=== PATIENT | male | born 1930 | race Caucasian/White ===

== ENCOUNTER 2016-05-12 12:51 | Inpatient (IN) | payer OTHER ==
[~2016-05-12] VITALS: Ht 177.8 cm; Wt 71.1 kg
[~2016-05-12 12:51] MED LIST: /WARF25TA PO; ARIC10TA PO; ASPI81TA85 PO; CRES20TA PO; FENO134C PO; FERR325T3 PO; OMEG100011 PO; SYNT25TA PO; TAMS0.4C PO; VITA200015 PO; [UNRECOGNIZED DRUG - OTHER] PO
[2016-05-12 13:20] LABS: ABG BASE EXCESS 0.8 (-2.0-2.0); ABG DEVICE NASAL CANN; ABG HCO3 23.3 MEQ/L (22.0-26.0); ABG PARTIAL PRESSURE O2 80.1 mmHg (75.0-100.0); ABG STANDARD HCO3 25.2 MEQ/L (22.0-26.0); ABG TOTAL CO2 24.2 MEQ/L (23.0-31.0); ABG pH (ARTERIAL) 7.493 UNITS (7.350-7.450)
[2016-05-12] MEDS ORDERED: WARF4TAB51 PO (14:05)
[2016-05-12] MEDS ORDERED: DONETAB6 PO (14:05)
[2016-05-12] MEDS ORDERED: FLOM5CAP PO (14:05)
[2016-05-12] MEDS ORDERED: VITA500055 PO (14:05)
[2016-05-12] MEDS ORDERED: ASPI1TAB PO (14:05)
[2016-05-12] MEDS ORDERED: CRES5TAB PO (14:05)
[2016-05-12] MEDS ORDERED: SYNT50TA PO (14:05)
[2016-05-12] MEDS ORDERED: VITA10002 PO (14:05)
[2016-05-12] MEDS ORDERED: FENO134C PO (14:05)
[2016-05-12] MEDS ORDERED: RISP0.253 PO (14:05)
[2016-05-12 14:19] LABS: INR 2.11
[2016-05-12 14:24] LABS: MEAN CORPUSCULAR HEMOGLOBIN 32.4 pg (27.0-33.0); MEAN CORPUSCULAR HGB CONC 32.1 g/dl (32.0-36.5); MEAN CORPUSCULAR VOLUME 100.8 fl (80.0-96.0); PLATELET COUNT, AUTOMATED 141 k/mm3 (150-450); RED CELL DISTRIBUTION WIDTH 13.9 % (11.5-14.5); WHITE BLOOD COUNT 14.2 K/mm3 (4.0-10.0)
--- NOTE | 2016-05-12 14:29 | REP ---
PORTABLE CHEST X-RAY: Sitting AP view. HISTORY: Altered mental status. COMPARISON: Chest x-ray September 16, 2014. 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 EKG electrodes are seen. There is calcific pleural plaquing bilaterally as before fairly extensively. No new infiltrate is seen. Moderate cardiomegaly unchanged. Prior sternotomy. IMPRESSION: Extensive calcific pleural plaquing bilaterally. Cardiomegaly with pacemaker. No acute infiltrate. Signed by Melvin Waldrop MD 05/12/2016 02:44 P
[2016-05-12 14:38] LABS: ALBUMIN 2.6 GM/DL (3.2-5.2); ALBUMIN/GLOBULIN RATIO 0.55 (1.00-1.93); ALKALINE PHOSPHATASE 112 U/L (45-117); ALT/SGPT 21 U/L (12-78); ANION GAP 8 MEQ/L (8-16); AST/SGOT 38 U/L (15-37); BILIRUBIN,DIRECT 0.5 MG/DL (0.0-0.2); BLOOD UREA NITROGEN 21 MG/DL (7-18); CALCIUM LEVEL 9.1 MG/DL (8.8-10.2); CARBON DIOXIDE LEVEL 29 MEQ/L (21-32); CHLORIDE LEVEL 106 MEQ/L (98-107); GLOMERULAR FILTRATION RATE > 60.0 (>35); GLUCOSE, FASTING 129 MG/DL (83-110); SODIUM LEVEL 143 MEQ/L (136-145); TOTAL PROTEIN 7.3 GM/DL (6.4-8.2)
[2016-05-12 14:45] LABS: BANDS 3 % (< 11); EOSINOPHILS 1 % (0-5)
[2016-05-12 14:59] LABS: CALCIUM OXALATE CRYSTALS SMALL
[2016-05-12] MEDS ORDERED: VANCOMYCIN 750 MG/25 ML VIAL (J3370) As Ordered ONE (16:33)
[2016-05-12] MEDS ORDERED: VANCOMYCIN 1000 MG/20 ML VIAL (J3370) As Ordered ONE (16:33)
[2016-05-12] MEDS ORDERED: ZOSYN 3.375 GM VIAL (J2543) As Ordered ONE (16:33)
[2016-05-12] MEDS ORDERED: ACETAMINOPHEN TAB 650MG DOSE (2X325MG) PO PRN (18:45)
[2016-05-12] MEDS ORDERED: BISACODYL 5 MG TAB PO PRN (18:45)
[2016-05-12] MEDS ORDERED: ONDANSETRON 4MG/2ML VIAL (J2405) IV PRN (18:45)
--- NOTE | 2016-05-12 19:45 | PHACANCOPD ---
PHARMACY VANCOMYCIN DOSING Pt Demographics Demographics Patient Age:86 , Weight: , Gender: male Adjusted Body Weight Date: 05/12/16, Adjusted Body Weight: Kg Events Past 24 Hours Events Past 24 Hours: YES: Elevation in WBC, NO: Change in CrCl, Dialysis, Diuretic Therapy, Fever, Other, Pending Diagnostics, Pending Procedures Vancomycin Vancomycin indication: infected groin ulcer Vancomycin Target Ranges: 15-20 mcg/ml Vancomycin Load Y/N: Yes Load Dose Date Time Vancomycin Load Dose: 1750mg Date: 05/12 Time: ~17:00 in ER Vancomycin Dose Date: 05/12/16. Current Vancomycin Dose: [1g q18h @05] Intermittent Dosing?: No Labs Labs Item Value Date Time White Blood Count 14.2 K/mm3 H 05/12/16 1354 Creatinine 0.80 MG/DL 05/12/16 1354 Micro Microbiology 05/12/16 Blood Culture, Received Pending 05/12/16 Blood Culture, Received Pending 05/12/16 Urine Culture, Received Pending Creatinine Clearance Date:05/12/16. Creatinine Clearance: [~67 ml/min]. Pending Labs Vanco trough scheduled 05/14 @16:00 Assessment and Plan Maintaining Current Dose?: Yes Reason for dose change: No Dose Change Pharmacist Note Pharmacist Note Date: 05/12/16. Pharmacist note: pt is being admitted for an infected groin ulcer, he has been started on Zosyn and Vanco. Pt received a 1750mg Vancomycin load in the ER and I have started him on 1g q18h to be started 12 hours after the loading dose. Pt has normal renal function but reduced clearance due to his age. He has not been on vancomycin at our facility in the past and does not have a hx of MRSA. His past wound (groin) cultures were notable for MSSA (12/2014 ) and E. faecalis (08/1998). I have a trough scheduled before the 4th dose. We will continue to monitor. Jones Quijano Pharm.D. May 12, 2016 19:45
[2016-05-12 20:12] LABS: MAGNESIUM LEVEL 1.8 MG/DL (1.8-2.4)
--- NOTE | 2016-05-12 20:32 | EDDOCDS ---
Nurse's Notes [facility] Name: Jerry Rossi Age: 86 yrs Sex: Male : 1930 Arrival Date: 05/12/2016 Time: 12:51 Bed Admit Hold Private MD: Cory Yousif Diagnosis: Dehydration;Elevated white blood cell count;Altered mental status, unspecified Presentation: 05/12 13:05 Presenting complaint: EMS states: Pt sent by family members due to pt having increased jf3 levels of confusion and decreased levels of consiousness. Family told EMS pt has increased mumbling and "isn't doing well". Adult Sepsis Screening:. Suicide/Homicide risk assessment- the patient denies having any suicidal and/or homicidal ideations and does not present with any other emotional, behavioral or mental health complaints. Status: Patient is not a volunteer services director or dependent. Transition of care: patient was not received from another setting of care. 13:05 Acuity: SAFIA Level 3 jf3 13:05 Method Of Arrival: Ambulance jf3 19:31 Adult Sepsis Screening: The patient does not have new or worsening altered mentation. af2 Patient's respiratory rate is less than 22. Systolic blood pressure is greater than 100. Patient has a qSOFA score of 0- Negative Sepsis Screen. Triage Assessment: 13:15 General: Appears in no apparent distress, Behavior is cooperative. Pain: Denies pain. jf3 The patient is triaged at the bedside. See Assessment in Nurses Notes section of ED record. Neurological: Level of Consciousness is awake, confused, Oriented to person. Respiratory: Airway is patent Respiratory effort is even, unlabored, Respiratory pattern is regular, symmetrical. Historical: - Allergies: no known allergies; - Home Meds: 1. Aricept 10 mg Oral tab 1 tab nightly 2. aspirin 81 mg Oral TbEC 1 tab once daily 3. Coumadin 1 mg oral tab 4. Crestor 5 mg oral tab 5. fenofibrate 134mg oral once daily 6. levothyroxine 50 mcg Oral tab 1 tab once daily 7. vitamin b12 1mg daily 8. tamsulosin 0.4 mg oral cp24 1 cap once daily 9. Vitamin D3 5,000 unit oral tab daily 10. risperidone 0.25 mg oral tab - PMHx: a fib; CAD; caroitd artery stenosis; Gout; hyperlipidemia; hypertrophy prostate with oobstruction; Hypothyroidism; iron deficency anemia; paroxysmal a fib; senile dementia; stage 3 kidney disease; thrombocytopenia; - PSHx: Cystectomy; Heart Surgery; Stents, Coronary; Cataract Surgery; CABG; Pacemaker Insertion; Inguinal hernia repair.; AortoBifem stenting; - Social history: Smoking status: other No barriers to communication noted, The patient speaks fluent Kittitian. - Family history: Not pertinent. - : The pt / caregiver states he / she is on anticoagulants: coumadin. Home medication list is obtained from [employer] import data, a discharge med list. - Exposure Risk Screening:: None identified. Screenin:28 Screening information is obtained from the caregiver. Fall risk: At risk due to jf3 immobility, The following interventions are performed due to a positive Fall Risk Screen: Fall Risk is added to Special Handling on the patient Summary Screen. A Fall Risk Bracelet was applied to the patient. Side Rails are placed in the up position. A Call Chaves is given with instruction to call for help when getting out of bed. Fall Alert bracelet is placed on the patient. Assistance ADL's: Requires assistance with meal preparation, this assistance is provided by family members, bathing, assistance is provided by family members, dressing, assistance is provided by family members, toileting, assistance is provided by family members, ambulation, assistance is provided by family members, housework, assistance is provided by family members, medication administration, assistance is provided by family members. Abuse/DV Screen: The patient / caregiver reports he/she is: not in a situation that causes fear, pain or injury. Nutritional screening: No deficits noted. Advance Directives: There is an active DNR order and the pt has a copy here at this time. home support is inadequate. Assessment: 13:28 Adult Sepsis Screening: Patient has new or worsening altered mentation (1 point). jf3 Patient's respiratory rate is less than 22. Systolic blood pressure is greater than 100. Patient has a qSOFA score of 1- Negative Sepsis Screen. General: Appears in no apparent distress, comfortable, Behavior is cooperative. Pain: Denies pain. Neurological: Level of Consciousness is awake, confused, Oriented to person, place, Speech mumbles. Cardiovascular: Capillary refill < 3 seconds Heart tones S3 present Chest pain is denied. Respiratory: Airway is patent Respiratory effort is even, unlabored, Respiratory pattern is regular, symmetrical, Breath sounds with crackles inspiratory expiratory in left posterior lower lobe and right posterior lower lobe. GI: Abdomen is non- distended Bowel sounds present X 4 quads. Abd is soft and non tender X 4 quads. Derm: Skin is dry. 14:30 General: Appears in no apparent distress, comfortable, Behavior is cooperative. Pain: jf3 Denies pain. Respiratory: Airway is patent Respiratory effort is even, unlabored, Respiratory pattern is regular, symmetrical. 15:30 General: Appears in no apparent distress, comfortable, Behavior is cooperative. jf3 Respiratory: Respiratory effort is even, unlabored, Respiratory pattern is regular, symmetrical. 16:30 General: Appears in no apparent distress, comfortable, Behavior is cooperative. jf3 General: So at bedside. Pain: Denies pain. Respiratory: Respiratory effort is even, unlabored, Respiratory pattern is regular, symmetrical. 17:30 General: Appears in no apparent distress, comfortable, Behavior is cooperative. jf3 General: SO at bedside. IV fluids running. Pain: Denies pain. Respiratory: Respiratory effort is even, unlabored, Respiratory pattern is regular, symmetrical. 17:59 General: Hospitalist in room with pt and SO. QMP states pt will be aspiration jf3 precautions, and to d/c O2 via NC. 18:03 General: Ordered by Dr Lennon to d/c remainder of 500cc NS bolus upon completion of abx's.jf3 18:30 General: Appears in no apparent distress, comfortable, Behavior is cooperative. Pain: jf3 Denies pain. Cardiovascular: Capillary refill < 3 seconds. Respiratory: Airway is patent Respiratory effort is even, unlabored, Respiratory pattern is regular, symmetrical. 18:30 Derm: Skin is normal. jf3 19:30 General: Assumed care of pt at this time, offers no complaints at this time. Advised af2 regarding plan of care and room assignment. Will continue to monitor.. Respiratory: Airway is patent Respiratory effort is even, unlabored. 19:55 General: pt and updated regarding plan of care.. af2 Vital Signs: 13:15 BP 128 / 60; Pulse 69; Resp 20; Temp 99(TE); Pulse Ox 96% on R/A; Weight 77.11 kg (R); jf3 Height 5 ft. 10 in. (177.80 cm) (R); Pain 0/10; 16:37 BP 122 / 58 (auto/); af2 16:39 Pulse 50 MON; Pulse Ox 100% ; af2 16:48 Pulse 68 MON; Pulse Ox 100% ; jf3 16:52 BP 127 / 60 (auto/); jf3 17:07 BP 128 / 69 (auto/); jf3 17:07 Pulse 86 MON; Pulse Ox 100% ; jf3 17:22 BP 136 / 67 (auto/); jf3 17:22 Pulse 68 MON; Pulse Ox 100% ; jf3 17:37 BP 140 / 70 (auto/); jf3 17:37 Pulse 68 MON; Pulse Ox 100% ; jf3 17:52 BP 141 / 67 (auto/); jf3 17:52 Pulse 68 MON; Pulse Ox 100% ; jf3 18:06 Pulse 70 MON; Pulse Ox 99% ; jf3 18:07 BP 146 / 68 (auto/); jf3 18:20 Pulse 68 MON; Pulse Ox 97% ; jf3 18:22 BP 134 / 67 (auto/); jf3 18:33 Pulse 68 MON; Pulse Ox 85% ; jf3 18:37 BP 132 / 71 (auto/); jf3 19:24 BP 158 / 72 (auto/); jf3 19:26 Pulse 68 MON; Pulse Ox 99% ; jf3 19:36 Pulse 68 MON; Pulse Ox 99% ; jf3 19:37 BP 163 / 73 (auto/); jf3 19:49 Pulse 70 MON; Pulse Ox 98% ; jf3 19:50 Pulse 68 MON; Pulse Ox 98% ; jf3 19:50 BP 162 / 73 (auto/); jf3 19:52 BP 154 / 70 (auto/); jf3 19:54 BP 162 / 73 RA; Pulse 73; Resp 18 S; Temp 97.6(TE); Pulse Ox 99% on R/A; af2 13:15 Body Mass Index 24.39 (77.11 kg, 177.80 cm) jf3 Vitals: 13:15 Log In Time N/A - ambulance arrival. jf3 ED Course: 12:52 Patient visited by Yolanda Vital PCA. brie 12:52 Cory Yousif MD is Private Physician. brie 12:52 Ofelia Covarrubias FNP is [facility]. le 12:52 Patient moved to Waiting brie 12:52 Patient moved to 15 brie 12:59 Patient visited by Ofelia Covarrubias FNP. le 12:59 Patient visited by Ofelia Covarrubias FNP. le 13:08 Triage Initiated jf3 13:16 -Arterial Blood Gas Sent. kt1 13:28 The patient / caregiver is instructed regarding the plan of care and ED course. jf3 13:49 Patient visited by Nelly Ren PCA. rs6 13:49 EKG done. (by ED staff). Reviewed by Ofelia SMITH. rs6 13:50 Pt greeted and oriented to ED. Patient advised of names of staff involved in care, rs6 location of call chaves, wait times and NPO status. Accompanied by Significant Other, Patient has correct armband on for positive identification. Placed in gown. Bed in low position. Call light in reach. Side rails up X2. machine edge bander on. Pulse ox on. NIBP on. 13:51 Patient visited by Nelly Ren PCA. rs6 14:00 [facility]LY [facility], [facility] Payment Agreement was scanned into [employer] and attached to record. mm15 14:15 Cardiac Injury Profile Sent. jf3 14:15 Liver Profile Sent. jf3 14:15 MED Profile Sent. jf3 14:15 Thyroid Stimulating Hormone Sent. jf3 14:15 Troponin Sent. jf3 14:40 DIFFERENTIAL NO CHARGE Sent. jf3 14:41 Urinalysis Sent. jf3 14:41 Urine Culture Sent. jf3 14:42 Patient visited by Casimiro Dotson,ELISEO. jf3 14:53 Chest, 1 View Returned. EDMS 16:14 Kami Snyder is Hospitalizing Provider. le 16:52 Patient visited by Casimiro Dotson RN. jf3 17:08 Patient visited by Nelly Ren PCA. rs6 18:04 Patient visited by Casimiro Dotson,ELISEO. jf3 18:57 Leanne Ayala,RN is Primary Nurse. af2 19:03 Patient moved to Admit Hold kpj 19:29 No procedures done that require assistance. af2 19:40 Patient visited by Leanne Ayala,RN. af2 19:55 Patient visited by Casimiro Dotson,ELISEO. jf3 19:56 Inserted other. af2 19:58 Patient visited by Leanne Ayala,RN. af2 Administered Medications: 14:24 Drug: NS 0.9% 500 ml [sodium chloride 0.9 % injection solution] Route: IV; Rate: bolus; jf3 Site: left forearm; 15:25 Follow up: IV Status: Completed infusion; IV Intake: 500ml jf3 16:51 Drug: NS 0.9% 500 ml [sodium chloride 0.9 % injection solution] Route: IV; Rate: bolus; jf3 Site: left forearm; 16:51 Drug: Piperacillin-Tazobactam 3.375 grams [piperacillin-tazobactam 3.375 gram jf3 intravenous solution] Route: IVPB; Infused Over: 30 mins; Site: left forearm; 19:55 Follow up: IV Status: Completed infusion; IV Intake: 50ml jf3 20:24 Not Given (Duplicate Order): vancomycin (loading dose for pt. wt. 70-79kg) 1750 mg IVPB af2 once 20:24 Drug: vancomycin (loading dose for pt. wt. 40-49kg) 1000 mg [vancomycin 1,000 mg af2 intravenous injection] Route: IVPB; Site: left forearm; Point of Care Testing: Blood Glucose: 13:41 Blood Glucose: 136 mg/dL; jf3 Ranges: Intake: 15:25 IV: 500.00ml; Total: 500.00ml. jf3 19:55 IV: 50.00ml; Total: 550.00ml. jf3 RT: 13:16 ABG's drawn from left brachial artery pressure held for 5 minuntes no bleeding noted kt1 pressure bandage applied specimen sent pt. tolerated well. Order Results: Lab Order: CBC with Diff; SPEC'M 05/12/16 13:54 Test: WHITE BLOOD COUNT; Value: 14.2; Range: 4.0-10.0; Abnormal: Above high normal; Units: K/mm3; Status: F Test: RED BLOOD COUNT; Value: 4.18; Range: 4.30-6.10; Abnormal: Below low normal; Units: M/mm3; Status: F Test: HEMOGLOBIN; Value: 13.5; Range: 14.0-18.0; Abnormal: Below low normal; Units: g/dl; Status: F Test: HEMATOCRIT; Value: 42.1; Range: 42.0-52.0; Units: %; Status: F Test: MEAN CORPUSCULAR VOLUME; Value: 100.8; Range: 80.0-96.0; Abnormal: Above high normal; Units: fl; Status: F Test: MEAN CORPUSCULAR HEMOGLOBIN; Value: 32.4; Range: 27.0-33.0; Units: pg; Status: F Test: MEAN CORPUSCULAR HGB CONC; Value: 32.1; Range: 32.0-36.5; Units: g/dl; Status: F Test: RED CELL DISTRIBUTION WIDTH; Value: 13.9; Range: 11.5-14.5; Units: %; Status: F Test: PLATELET COUNT, AUTOMATED; Value: 141; Range: 150-450; Abnormal: Below low normal; Units: k/mm3; Status: F Test: NEUTROPHILS; Value: 86; Range: 35-75; Abnormal: Above high normal; Units: %; Status: F Test: BANDS; Value: 3; Range: < 11; Units: %; Status: F Test: LYMPHOCYTES; Value: 3; Range: 16-52; Abnormal: Below low normal; Units: %; Status: F Test: MONOCYTES; Value: 7; Range: 0-8; Units: %; Status: F Test: EOSINOPHILS; Value: 1; Range: 0-5; Units: %; Status: F Test: MACROCYTOSIS; Value: 1+; Status: F Lab Order: Cardiac Injury Profile; [facility] 05/12/16 13:54 Test: CPK CREATINE PHOSPHOKINASE; Value: 24; Range: 39-308; Abnormal: Below low normal; Units: U/L; Status: F Test: CK-MB VALUE MASS; Value: 1.0; Range: 0.0-3.6; Units: NG/ML; Status: F Test: MB/CK RELATIVE INDEX; Value: 4.16; Range: < OR =4; Abnormal: Above high normal; Status: F Test Note: ; DIAGNOSIS CRITERIA MMB ng/ml Relative Index (RI) NON-AMI < or = 5 N/A STILES ZONE > 5 < or = 4 AMI > 5 > 4 Lab Order: Liver Profile; [facility] 05/12/16 13:54 Test: AST/SGOT; Value: 38; Range: 15-37; Abnormal: Above high normal; Units: U/L; Status: F Test: ALT/SGPT; Value: 21; Range: 12-78; Units: U/L; Status: F Test: ALKALINE PHOSPHATASE; Value: 112; Range: 45-117; Units: U/L; Status: F Test: BILIRUBIN,TOTAL; Value: 1.0; Range: 0.2-1.0; Units: MG/DL; Status: F Test: BILIRUBIN,DIRECT; Value: 0.5; Range: 0.0-0.2; Abnormal: Above high normal; Units: MG/DL; Status: F Test: TOTAL PROTEIN; Value: 7.3; Range: 6.4-8.2; Units: GM/DL; Status: F Test: ALBUMIN; Value: 2.6; Range: 3.2-5.2; Abnormal: Below low normal; Units: GM/DL; Status: F Test: ALBUMIN/GLOBULIN RATIO; Value: 0.55; Range: 1.00-1.93; Abnormal: Below low normal; Status: F Lab Order: [facility] Profile; [facility] 05/12/16 13:54 Test: GLUCOSE, FASTING; Value: 129; Range: 83-110; Abnormal: Above high normal; Units: MG/DL; Status: F Test: BLOOD UREA NITROGEN; Value: 21; Range: 7-18; Abnormal: Above high normal; Units: MG/DL; Status: F Test: CREATININE FOR GFR; Value: 0.80; Range: 0.70-1.30; Units: MG/DL; Status: F Test: GLOMERULAR FILTRATION RATE; Value: > 60.0; Range: >35; Status: F Test: SODIUM LEVEL; Value: 143; Range: 136-145; Units: MEQ/L; Status: F Test: POTASSIUM SERUM; Value: 4.0; Range: 3.5-5.1; Units: MEQ/L; Status: F Test: CHLORIDE LEVEL; Value: 106; Range: 98-107; Units: MEQ/L; Status: F Test: CARBON DIOXIDE LEVEL; Value: 29; Range: 21-32; Units: MEQ/L; Status: F Test: ANION GAP; Value: 8; Range: 8-16; Units: MEQ/L; Status: F Test: CALCIUM LEVEL; Value: 9.1; Range: 8.8-10.2; Units: MG/DL; Status: F Test Note: ; Units are mL/min/1.73 m2 Chronic Kidney Disease Staging per NKF: Stage I & II GFR >=60 Normal to Mildly Decreased Stage III GFR 30-59 Moderately Decreased Stage IV GFR 15-29 Severely Decreased Stage V GFR <15 Very Little GFR Left ESRD GFR <15 on OIL DRILLER Lab Order: Thyroid Stimulating Hormone; [facility] 05/12/16 13:54 Test: THYROID STIMULATING HORMONE; Value: 2.000; Range: 0.358-3.740; Units: uIU/ML; Status: F Lab Order: Troponin; [facility] 05/12/16 13:54 Test: TROPONIN I; Value: 0.04; Range: < 0.10; Units: NG/ML; Status: F Test Note: ; Troponin I Reference Interval for REach LOCI: 99th Percentile= 0.00-0.045 ng/ml Risk Stratification: <= 0.10 ng/ml Decreased Risk for Adverse Clinical Events. 0.10-1.50 ng/ml Increased Risk for Adverse Clinical Events. Evaluation of additional criterion and/or repeat testing in 2-6 hours is suggested to rule out myocardial damage. >= 1.50 ng/ml Indicative of Myocardial Injury. Lab Order: Urinalysis; [facility] 05/12/16 14:39 Test: APPEARANCE, URINE; Value: HAZY; Range: CLEAR; Status: F Test: COLOR, URINE; Value: LEANNE; Range: YELLOW; Status: F Test: PH,URINE; Value: 6.0; Range: 5.0-9.0; Units: UNITS; Status: F Test: SPECIFIC GRAVITY URINE AUTO; Value: 1.021; Range: 1.002-1.035; Status: F Test: PROTEIN, URINE AUTO; Value: NEGATIVE; Range: NEGATIVE; Units: mg/dL; Status: F Test: GLUCOSE, URINE (UA) AUTO; Value: NEGATIVE; Range: NEGATIVE; Units: mg/dL; Status: F Test: KETONE, URINE AUTO; Value: NEGATIVE; Range: NEGATIVE; Units: mg/dL; Status: F Test: UROBILINOGEN, URINE AUTO; Value: 4.0; Range: 0.0-2.0; Abnormal: Above high normal; Units: mg/dL; Status: F Test: BILIRUBIN, URINE AUTO; Value: NEGATIVE; Range: NEGATIVE; Status: F Test: NITRITE, URINE AUTO; Value: NEGATIVE; Range: NEGATIVE; Status: F Test: LEUKOCYTE ESTERASE, URINE AUTO; Value: 1+; Range: NEGATIVE; Abnormal: Above high normal; Status: F Test: BLOOD, URINE BLOOD; Value: 2+; Range: NEGATIVE; Abnormal: Above high normal; Status: F Test: WBC, URINE AUTO; Value: 28; Range: 0-3; Abnormal: Above high normal; Units: /HPF; Status: F Test: RBC, URINE AUTO; Value: 42; Range: 0-3; Abnormal: Above high normal; Units: /HPF; Status: F Test: BACTERIA, URINE AUTO; Value: NEGATIVE; Range: NEGATIVE; Status: F Test: SQUAMOUS EPITHELIAL CELL UR AU; Value: 0; Range: 0-6; Units: /HPF; Status: F Test: MUCUS, URINE; Value: SMALL; Range: NEGATIVE; Status: F Test: HYALINE CAST, URINE AUTO; Value: 0; Range: 0-1; Units: /LPF; Status: F Test: CALCIUM OXALATE CRYSTALS; Value: SMALL; Range: NONE; Status: F Lab Order: -Arterial Blood Gas; SPEC'M 05/12/16 13:01 Test: ABG pH (ARTERIAL); Value: 7.493; Range: 7.350-7.450; Abnormal: Above high normal; Units: UNITS; Status: F Test: ABG PARTIAL PRESSURE CO2; Value: 31.0; Range: 35.0-45.0; Abnormal: Below low normal; Units: mmHg; Status: F Test: ABG PARTIAL PRESSURE O2; Value: 80.1; Range: 75.0-100.0; Units: mmHg; Status: F Test: ABG TOTAL CO2; Value: 24.2; Range: 23.0-31.0; Units: MEQ/L; Status: F Test: ABG HCO3; Value: 23.3; Range: 22.0-26.0; Units: MEQ/L; Status: F Test: ABG BASE EXCESS; Value: 0.8; Range: -2.0-2.0; Status: F Test: ABG STANDARD HCO3; Value: 25.2; Range: 22.0-26.0; Units: MEQ/L; Status: F Test: ABG O2 SATURATION; Value: 96.9; Range: 95.0-99.0; Units: %; Status: F Test: ABG DEVICE; Value: NASAL YENY; Status: F Lab Order: Ammonia ([place] Tube on Ice, Not [place]); [facility] 05/12/16 13:54 Test: AMMONIA; Value: < 25; Range: <32; Units: uMOL/L; Status: F Lab Order: INR; 05/12/16 13:54 Test: PROTHROMBIN TIME; Value: 23.7; Range: 12.3-14.5; Abnormal: Above high normal; Units: SECONDS; Status: F Test: INR; Value: 2.11; Status: F Test Note: ; THERAPUTIC HUMAN INR VALUES INDICATIONS NORMAL RANGES PROPHYLAXIS/TREATMENT OF: VENOUS THROMBOSIS 2.0-3.0 PULMONARY EMBOLISM 2.0-3.0 PREVENTION OF SYSTEMIC EMBOLISM FROM: TISSUE HEART VALVES 2.0-3.0 ACUTE MYOCARDIAL INFARCTION 2.0-3.0 VALVULAR HEART DISEASE 2.0-3.0 ATRIAL FIBRILLATION 2.0-3.0 MECHANICAL VALVES(HIGH RISK) 2.5-3.5 RECURRENT MYOCARDIAL INFARCTION 2.5-3.5 Lab Order: Lactic Acid ([place] tube on ice); 05/12/16 13:54 Test: LACTIC ACID LEVEL, LACTATE; Value: 2.4; Range: 0.4-2.0; Abnormal: Above upper panic limits; Units: MMOL/L; Status: F Lab Order: Fingerstick Blood Sugar; 05/12/16 13:39 Test: BEDSIDE GLUCOSE; Value: 136; Range: 83-110; Abnormal: Above high normal; Units: MG/DL; Status: F Lab Order: PLATELET ESTIMATE; 05/12/16 13:54 Test: PLATELET ESTIMATE; Value: DECREASED; Range: NORMAL; Status: F Lab Order: MAGNESIUM LEVEL; [facility] 05/12/16 19:26 Test: MAGNESIUM LEVEL; Value: 1.8; Range: 1.8-2.4; Units: MG/DL; Status: F Lab Order: THYROID STIMULATING HORMONE; [facility]05/12/16 19:26 Test: THYROID STIMULATING HORMONE; Value: 1.220; Range: 0.358-3.740; Units: uIU/ML; Status: F Lab Order: LACTIC ACID LEVEL, LACTATE; SPEC'M 05/12/16 19:26 Test: LACTIC ACID LEVEL, LACTATE; Value: 1.9; Range: 0.4-2.0; Units: MMOL/L; Status: F Radiology Order: Chest, 1 View Test: Chest, 1 View REASON FOR EXAMINATION: altered mental status; PORTABLE CHEST X-RAY:; ; Sitting AP view.; ; HISTORY: Altered mental status.; ; COMPARISON: Chest x-ray September 16, 2014.; ; FINDINGS: A bipolar pacemaker is seen in the right heart via the left side. EKG; electrodes are seen. There is calcific pleural plaquing bilaterally as before; fairly extensively. No new infiltrate is seen. Moderate cardiomegaly unchanged.; Prior sternotomy.; ; IMPRESSION: Extensive calcific pleural plaquing bilaterally. Cardiomegaly with; pacemaker. No acute infiltrate.; ; ; Signed by; Melvin Waldrop MD 05/12/2016 02:44 P; Outcome: 16:14 Decision to Hospitalize by Provider. le 19:55 Discharge Assessment: Patient awake, alert and oriented x 3. No cognitive and/or af2 functional deficits noted. Patient verbalized understanding of disposition instructions. patient administered narcotics - no. The following High Risk Discharge criteria are identified: None. Admitted to Med/Surg accompanied by tech, via stretcher, with chart. Condition: stable. No special radiology studies were completed. Property :Personal belongings accompany Pt. 20:31 Patient left the ED. af2 Signatures: [facility] Kayla Garduno RN RN kpj [place], Kristin kt1 Ofelia Covarrubias, LUIS HAND CROWN POUNCER Yolanda Schneider, ASSOCIATE PROFESSOR OF PATHOLOGY ASSOCIATE PROFESSOR OF PATHOLOGY brie Matheus Montelongo mm15 Nelly Ren, ASSOCIATE PROFESSOR OF PATHOLOGY ASSOCIATE PROFESSOR OF PATHOLOGY rs6 Leanne Ayala RN RN af2 Casimiro Dotson RN RN jf3 MTDD
--- NOTE | 2016-05-12 20:32 | EDDOCDS ---
Physician Documentation [facility] Name: Jerry Rossi Age: 86 yrs Sex: Male : 1930 Arrival Date: 05/12/2016 Time: 12:51 Bed Admit Hold Private MD: Cory Yousif Disposition: 05/12/16 16:14 Hospitalization ordered by Kami Snyder for Observation. Preliminary diagnosis are Dehydration, Elevated white blood cell count, Altered mental status, unspecified. - Bed requested for 4 [place]. - Status is Observation. af2 - Condition is Stable. - Problem is new. - Symptoms are unchanged. Historical: - Allergies: no known allergies; - Home Meds: 1. Aricept 10 mg Oral tab 1 tab nightly 2. aspirin 81 mg Oral TbEC 1 tab once daily 3. Coumadin 1 mg oral tab 4. Crestor 5 mg oral tab 5. fenofibrate 134mg oral once daily 6. levothyroxine 50 mcg Oral tab 1 tab once daily 7. vitamin b12 1mg daily 8. tamsulosin 0.4 mg oral cp24 1 cap once daily 9. Vitamin D3 5,000 unit oral tab daily 10. risperidone 0.25 mg oral tab - PMHx: a fib; CAD; caroitd artery stenosis; Gout; hyperlipidemia; hypertrophy prostate with oobstruction; Hypothyroidism; iron deficency anemia; paroxysmal a fib; senile dementia; stage 3 kidney disease; thrombocytopenia; - PSHx: Cystectomy; Heart Surgery; Stents, Coronary; Cataract Surgery; CABG; Pacemaker Insertion; Inguinal hernia repair.; AortoBifem stenting; - Social history: Smoking status: other No barriers to communication noted, The patient speaks fluent Sudanese. - Family history: Not pertinent. - : The pt / caregiver states he / she is on anticoagulants: coumadin. Home medication list is obtained from [employer] import data, a discharge med list. - Exposure Risk Screening:: None identified. Vital Signs: 05/12 13:15 BP 128 / 60; Pulse 69; Resp 20; Temp 99(TE); Pulse Ox 96% on R/A; Weight 77.11 kg / 170 jf3 lbs (R); Height 5 ft. 10 in. (177.80 cm) (R); Pain 0/10; 16:37 BP 122 / 58 (auto/); af2 16:39 Pulse 50 MON; Pulse Ox 100% ; af2 16:48 Pulse 68 MON; Pulse Ox 100% ; jf3 16:52 BP 127 / 60 (auto/); jf3 17:07 BP 128 / 69 (auto/); jf3 17:07 Pulse 86 MON; Pulse Ox 100% ; jf3 17:22 BP 136 / 67 (auto/); jf3 17:22 Pulse 68 MON; Pulse Ox 100% ; jf3 17:37 BP 140 / 70 (auto/); jf3 17:37 Pulse 68 MON; Pulse Ox 100% ; jf3 17:52 BP 141 / 67 (auto/); jf3 17:52 Pulse 68 MON; Pulse Ox 100% ; jf3 18:06 Pulse 70 MON; Pulse Ox 99% ; jf3 18:07 BP 146 / 68 (auto/); jf3 18:20 Pulse 68 MON; Pulse Ox 97% ; jf3 18:22 BP 134 / 67 (auto/); jf3 18:33 Pulse 68 MON; Pulse Ox 85% ; jf3 18:37 BP 132 / 71 (auto/); jf3 19:24 BP 158 / 72 (auto/); jf3 19:26 Pulse 68 MON; Pulse Ox 99% ; jf3 19:36 Pulse 68 MON; Pulse Ox 99% ; jf3 19:37 BP 163 / 73 (auto/); jf3 19:49 Pulse 70 MON; Pulse Ox 98% ; jf3 19:50 Pulse 68 MON; Pulse Ox 98% ; jf3 19:50 BP 162 / 73 (auto/); jf3 19:52 BP 154 / 70 (auto/); jf3 19:54 BP 162 / 73 RA; Pulse 73; Resp 18 S; Temp 97.6(TE); Pulse Ox 99% on R/A; af2 13:15 Body Mass Index 24.39 (77.11 kg, 177.80 cm) jf3 MDM: 12:54 Insurance Claims Adjuster/Pulse Ox/q 15 min VS ordered. le 12:54 Accucheck ordered. le 12:54 IV Saline Lock ordered. le 12:54 Oxygen at 4L/Min NC or Home dosage ordered. le 12:54 Rhythm Strip to chart ordered. le 12:54 Call Respiratory ordered. le 12:54 CBC with Diff Ordered. EDMS 12:54 Cardiac Injury Profile Ordered. EDMS 12:54 Liver Profile Ordered. EDMS 12:54 MED Profile Ordered. EDMS 12:54 Thyroid Stimulating Hormone Ordered. EDMS 12:54 Troponin Ordered. EDMS 12:54 Urinalysis Ordered. EDMS 12:54 Urine Culture Ordered. EDMS 12:55 Call Respiratory complete. brie 12:55 -Arterial Blood Gas Ordered. EDMS 12:55 Ammonia ([place] Tube on Ice, Not [place]a Green) Ordered. EDMS 12:56 Chest, 1 View Ordered. EDMS 12:56 ECG WITH READING ER PHYS+CARDIAG ordered. EDMS 12:56 INR Ordered. EDMS 13:17 Lactic Acid (Stiles tube on ice) Ordered. EDMS 13:35 -Arterial Blood Gas Reviewed. le 13:43 BED REQUEST+ADM ordered. EDMS 13:47 Financial registration complete. mm15 13:53 NS 0.9% 500 ml IV at bolus once ordered. le 14:00 [facility] Payment Agreement was scanned into [employer] and attached to record. mm15 14:25 DIFFERENTIAL NO CHARGE Ordered. EDMS 14:37 CBC with Diff Reviewed. le 14:37 INR Reviewed. le 14:37 Fingerstick Blood Sugar Reviewed. le 14:37 Ammonia ([place] Tube on Ice, Not Pea Green) Reviewed. le 15:58 CBC with Diff Reviewed. le 15:58 Cardiac Injury Profile Reviewed. le 15:58 Liver Profile Reviewed. le 15:58 MED Profile Reviewed. le 15:58 Urinalysis Reviewed. le 15:58 Lactic Acid (Stiles tube on ice) Reviewed. le 15:58 Thyroid Stimulating Hormone Reviewed. le 15:58 Troponin Reviewed. le 15:58 PLATELET ESTIMATE Reviewed. le 15:58 Chest, 1 View Reviewed. le 16:01 NS 0.9% 500 ml IV at bolus once ordered. le 16:01 vancomycin (loading dose for pt. wt. 70-79kg) 1750 mg IVPB once ordered. le 16:01 Piperacillin-Tazobactam 3.375 grams IVPB once over 30 mins; dilute in 50mL of NS or D5W le ordered. 16:03 -Blood Culture (Adults Only), peripheral from different site, or from device/port/PICC le etc. if present ordered. 16:03 -Blood Culture Ordered. EDMS 16:06 BLOOD CULTURES Ordered. EDMS 16:07 -Blood Culture (Adults Only), peripheral from different site, or from device/port/PICC mt4 etc. if present complete. 18:35 PUREED DIET ordered. EDMS 18:[address] AND GRAM [address] Ordered. EDMS 18:38 Admission / Observation Status ordered. EDMS 18:41 MAGNESIUM LEVEL Ordered. EDMS 18:41 THYROID STIMULATING HORMONE Ordered. EDMS 18:41 LACTIC ACID LEVEL, LACTATE Ordered. EDMS 18:41 PHYSICAL THERAPY EVAL & TREAT ordered. EDMS 19:32 CBC WITH DIFFERENTIAL Ordered. EDMS 19:32 BASIC METABOLIC PROFILE Ordered. EDMS 20:24 vancomycin (loading dose for pt. wt. 40-49kg) 1000 mg IVPB once ordered. af2 Point of Care Testing: Blood Glucose: 13:41 Blood Glucose: 136 mg/dL; jf3 Ranges: Administered Medications: 14:24 Drug: NS 0.9% 500 ml [sodium chloride 0.9 % injection solution] Route: IV; Rate: bolus; jf3 Site: left forearm; 15:25 Follow up: IV Status: Completed infusion; IV Intake: 500ml jf3 16:51 Drug: NS 0.9% 500 ml [sodium chloride 0.9 % injection solution] Route: IV; Rate: bolus; jf3 Site: left forearm; 16:51 Drug: Piperacillin-Tazobactam 3.375 grams [piperacillin-tazobactam 3.375 gram jf3 intravenous solution] Route: IVPB; Infused Over: 30 mins; Site: left forearm; 19:55 Follow up: IV Status: Completed infusion; IV Intake: 50ml jf3 20:24 Not Given (Duplicate Order): vancomycin (loading dose for pt. wt. 70-79kg) 1750 mg IVPB af2 once 20:24 Drug: vancomycin (loading dose for pt. wt. 40-49kg) 1000 mg [vancomycin 1,000 mg af2 intravenous injection] Route: IVPB; Site: left forearm; Signatures: Dispatcher [employer] EDKayla Birch RN RN Ofelia Shay, CATCH BASIN CLEANER CATCH BASIN CLEANER Julia Freeman mt4 Yolanda Vital, HEAD TRACK COACH HEAD TRACK COACH Matheus Silva mm15 Leanne AyalaRN RN af2 Casimiro Dotson,RN RN jf3 The chart was reviewed and I authenticate all verbal orders and agree with the evaluation and treatment provided.Attachments: 14:00 [facility] Payment Agreement mm15 MTDD
[2016-05-12 20:36] VITALS: BP 122/70
[2016-05-12] MEDS: WARFARIN SOD 2 MG TAB PO SCH (21:45)
[2016-05-12] MEDS: risperiDONE 0.25 MG TAB PO SCH (21:45)
[2016-05-12] MEDS: DOCUSATE SODIUM 100 MG CAP PO SCH (21:45)
[2016-05-12] MEDS: TAMSULOSIN 0.4 MG CAP PO SCH (21:45)
[2016-05-12] MEDS: PIPERACILLIN/TAZOBACTAM SOD 3.375 GM in D5W MINI-BAG PLUS 50 ML IV SCH (22:58)
[2016-05-13] MEDS ORDERED: NYSTATIN 100,000 UNITS/GM TOPICAL PWD 15 GM TOP PRN (03:45)
[2016-05-13] MEDS: PIPERACILLIN/TAZOBACTAM SOD 3.375 GM in D5W MINI-BAG PLUS 50 ML IV SCH ×4 (04:35→23:10)
[2016-05-13] MEDS: VANCOMYCIN HCL 1,000 MG, VIAL MATE ADAPTER 1 EACH in D5W 250 ML IV SCH ×2 (04:35→23:09)
[2016-05-13] MEDS: LEVOTHYROXINE 0.05 MG TAB (50 MCG) PO SCH (05:31)
[2016-05-13 06:00] VITALS: BP 127/60
[2016-05-13 06:24] LABS: BASO % 0.4 % (0.0-1.0); EOS # 0.1 K/mm3 (0.0-0.50); EOS % 1.3 % (0.0-3.0); LARGE UNSTAINED CELL # 0.1 K/mm3 (0.0-0.4); LYMPH # 0.5 K/mm3 (1.5-4.5); LYMPH % 4.7 % (24.0-44.0); MEAN CORPUSCULAR HEMOGLOBIN 32.1 pg (27.0-33.0); MEAN CORPUSCULAR HGB CONC 31.7 g/dl (32.0-36.5); MEAN CORPUSCULAR VOLUME 101.3 fl (80.0-96.0); MONO # 0.6 K/mm3 (0.0-0.8); MONO % 5.7 % (0.0-5.0); NEUTROPHILS % 86.9 % (36.0-66.0); PLATELET COUNT, AUTOMATED 118 k/mm3 (150-450); RED CELL DISTRIBUTION WIDTH 13.1 % (11.5-14.5); WHITE BLOOD COUNT 10.3 K/mm3 (4.0-10.0)
[2016-05-13 06:39] LABS: ANION GAP 9 MEQ/L (8-16); BLOOD UREA NITROGEN 19 MG/DL (7-18); CARBON DIOXIDE LEVEL 27 MEQ/L (21-32); CHLORIDE LEVEL 109 MEQ/L (98-107); GLOMERULAR FILTRATION RATE > 60.0 (>35); GLUCOSE, FASTING 95 MG/DL (83-110); POTASSIUM SERUM 3.6 MEQ/L (3.5-5.1); SODIUM LEVEL 145 MEQ/L (136-145)
--- NOTE | 2016-05-13 06:52 | HPE ---
DATE OF ADMISSION: 05/12/2016 Time patient seen was yesterday afternoon on 05/12/2016 at around 1700 hours. Patient's primary care provider is Dr. Yousif. CHIEF COMPLAINT: Appears to be weaker than usual. HISTORY OF PRESENT ILLNESS (HPI): 86-year-old male with a past medical history of chronic colonized left inguinal hernia wound after surgery, cardiomyopathy with moderate mitral regurgitation and also mild aortic regurgitation, coronary artery disease, complete heart block, dual chamber pacemaker, atrial fibrillation, on warfarin, diastolic congestive heart failure (CHF) and hypertensive heart disease, peripheral artery disease, stage III chronic kidney disease, carotid artery disease, osteoarthritis, hyperlipidemia, BPH, cataracts, history of abdominal aortic aneurysm status post repair, moderate to severe dementia, gout, obesity and hypothyroidism, vitamin D deficiency, presented with worsening mental status. Patient was sent to emergency room due to home healthcare recommendation. According to patient's , who was in the room during interview, patient has been having dementia and has been having confusion for quite some time. Per patient's , who was also emotional and tearful during the interview, she stated that the patient has been demented for at least 10 years, however has been worsening over the past 2-3 weeks. For the past 2-3 weeks, the patient only wakes up about 1 hour per day and does not really make any meaningful conversation with her. She also stated that he has been also bed bound for many years. Patient had an inguinal repair roughly 10 years ago. However, the mesh at the left side inguinal hernia got infected in the incisions that opened several years ago and this started to produce purulent drainage. It was evaluated by patient's surgeon. However, it was felt that it was too late to remove the mesh due to infection. He was seen at wound care in [place], and also with Dr. Cage in [place]. However, patient's believed that the wound care was not doing anything for the patient. Therefore, he stopped going there at least for 1 year. Patient's was tearful and does not go into details, and also stated that they would not want any surgical procedure done due to likely no one was going to patch it due it has been worked up before and she has given up hope for any type of procedure on him. He was also labeled nonoperative per the previous surgeon, who evaluated him. Otherwise, patient himself was alert, awake, oriented to himself only. However, he does know that he is in a hospital and does make minimal meaningful conversation. Patient's stated that "she had enough and she will need some sort of help now." Per patient's , they are working to get patient placed in custodial, possibly [facility], and she is undergoing paperwork with [facility]. Otherwise, the denies patient has any fever or any discomfort anywhere. Patient himself denies any chest pain, trouble breathing, any abdominal pains, or any fever or chills. ALLERGIES: None. HOME MEDICATIONS: - aspirin 81 mg one tablet by mouth daily - vitamin D3 5000 units one tablet by mouth daily - vitamin B12 1000 mcg one tablet by mouth daily - donepezil 10 mg one tablet by mouth nightly - fenofibrate 134 mg one tablet by mouth daily - Synthroid 50 mcg one tablet by mouth daily - risperidone 0.25 mg one tablet by mouth nightly - Crestor 5 mg one tablet by mouth daily - Flomax 0.4 mg one tablet by mouth nightly - warfarin 2 mg one tablet by mouth nightly PAST MEDICAL HISTORY: Includin. Cardiomyopathy, also complete heart block, dual chamber pacemaker. Followed up with Dr. Ceballos in the past. 2. Coronary artery disease status post CABG. 3. Atrial fibrillation, on warfarin. 4. Severe peripheral artery disease, had multiple aortic stents. 5. Hyperlipidemia. 6. Osteoarthritis. 7. Diastolic heart failure. 8. Chronic kidney disease, stage III. 9. Carotid artery disease. 10. BPH. 11. History of abdominal aortic aneurysm, status post repair. 12. Cataracts. 13. Moderate to severe dementia. 14. Gout. 15. Hypothyroidism. 16. Vitamin D deficiency. PAST SURGICAL HISTORY: Includin. CABG times four. 2. Aortoiliac stent and also aortobifemoral stent. 3. Cataract surgery bilaterally. 4. Left inguinal hernia repair. 5. Pacemaker placement. 6. Right carotid endarterectomy. 7. Cecilia fundoplication in 2006. 8. Circumcision as an adult. 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 Denies any smoking, drinking or recreational drug use. FAMILY HISTORY: Patient's father and brother from heart disease. REVIEW OF SYSTEM: Full review of systems could not be obtained due to patient does not respond to questions due to dementia. However, stated that he lost about 30 pounds over the past 6 months. Otherwise, patient does not have any fever recently. Patient was confused at baseline and however, it has worsened compared to baseline for at least 2-3 weeks. Patient has been bed bound for many years. 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 According to , the color of the drainage has not really changed and the amount of drainage has not changed either. PHYSICAL EXAMINATION: VITAL SIGNS: Blood pressure 128/60, pulse 69, respirations 20, temperature 99, oxygen was saturating at 96% on room air. Weight was 77 kg. Height was 177 cm GENERAL: Patient is a frail-looking demented, bed bound, elderly male who was alert, awake, oriented to himself only, does not appear to be in distress, laying comfortably in bed with head elevated at 20 degrees. HEENT: Normocephalic, atraumatic. Extraocular motor intact. Mucous moist. NECK: Supple. No neck lymphadenopathy. CARDIOVASCULAR: Irregularly irregular. S1, S2. 2/6 systolic heart murmur. LUNGS: Bilateral rales. ABDOMEN: Positive bowel sounds. Soft, nontender, nondistended. No peritoneal signs. No ecchymosis. Large midline incisional scar. Patient also has two draining ulcers at the left inguinal site produces purulent drainage. It is more grayish in color. However, it was only mildly tender to palpation. EXTREMITIES: No edema, clubbing or cyanosis. SKIN: Warm and dry. NEUROLOGIC: Cranial nerves II-XII intact. Patient could not participate further neurological testing due to dementia. LABORATORY DATA: WBC 14.2, hemoglobin 13.5, hematocrit 42.1, with MCV of 100.8 and platelet count of 141. Sodium 142, potassium 4, chloride 106, bicarbonate 29, BUN 21, creatinine 0.8, GFR greater than 60, fasting glucose 129, lactic acid 2.4 with first lactic acid 1.9, calcium 9.1, magnesium 1.8, total bilirubin 1, direct bilirubin 2.5, AST 38, ALT 21, alkaline phosphatase 112, ammonia level less than 25, total CK 24, CK-MB 1, troponin 0.04, total protein 7.3, albumin was low 2.6, TSH was 2. Patient's PT was 23.7, INR 2.11. Urinalysis shows 2+ blood, 4 urobilinogen, 1+ leukocyte esterase, 28 WBC, 42, RBC. Wound gram-stain and culture are pending. Blood culture times two are pending. Urine culture are pending. Patient had a portable chest x-ray in the emergency room. It shows extensive calcified pleural plaque bilaterally, cardiomegaly with pacemaker. No acute infiltrates. ASSESSMENT AND PLAN: 86-year-old male with past medical history of significant dementia, at least moderate to severe, who has been chronically bed bound for many years with significant cardiomyopathy and had a complete heart block, dual chamber pacemaker, atrial fibrillation, on warfarin, coronary artery disease status post CABG, also severe peripheral artery disease, had multiple aortic stents, also has a nonhealing colonized left inguinal hernia incisional wound for many years, and also diastolic heart failure and hypertensive heart disease, chronic kidney disease, stage III, carotid artery stenosis status post repair, BPH, abdominal aortic aneurysm status post stent, cataract surgery, gout, hypothyroidism, and vitamin D deficiency presented with: 1. Possible septic encephalopathy on chronic dementia. Patient does have leukocytosis WBC 14 and does have an elevated lactic acid of 2.4. Patient did receive 1 liters of normal saline bolus in the emergency room and was started on vancomycin, Zosyn. Will continue patient on vancomycin, Zosyn and obtain wound culture. At this point, patient's does not want any surgical evaluation due to she stated that no one was going to do anything with the wound due to patient was found to be a nonoperative candidate and he has been going to wound care for years and still has the chronic wound of left groin. At this point, we will followup with the cultures and will not give further IV hydration due to he does now have bilateral rales in the lung. Will continue to monitor patient. 2. Lactic acidosis 2.4, resolved. Repeat lactic acid was 1.9. 3. Malnutrition with hypoalbuminemia of 2.6. Will start patient on Ensure supplement. He was already on Ensure at home, will continue. 4. Some dysphagia per patient's . Will start patient on pureed diet for now, and will have a dietary consult to evaluate patient swallow and proper nutrition. 5. Possible urinary tract infection (UTI) with microhematuria on the urinalysis. Urine culture has been ordered. Will follow. Will continue broad-spectrum antibiotics with vancomycin and Zosyn. 6. Possible sepsis. Patient does have a reduced mentation and does have lactic acidosis. Will continue vancomycin and Zosyn, which was started in the emergency room, and continue to monitor patient. 7. Thrombocytopenia with platelet of 141. Will continue to trend. 8. Macrocytic anemia with hemoglobin of 13.5 and mean corpuscular volume (MCV) of 100.8. Will order B12, folate. 9. Chronic wound of left inguinal area secondary to colonized mesh with chronic draining for many years. Patient was seen at wound care in the past. However, patient stopped going to due to does not believe they are doing anything for him. At this point, patient's refused surgical evaluation due to she does not believe they will do anything with him because he had worked up in the past and was found to be a nonoperative candidate. 10. Cardiomyopathy with moderate mitral regurgitation and mild aortic regurgitation. Also, coronary artery disease status post CABG, and also complete heart block status post dual chamber pacemaker. Will continue to monitor. 11. Atrial fibrillation, on Warfarin. International normalized ratio (INR) is 2.1. Continue warfarin. 12. Hyperlipidemia, stable. 13. Osteoarthritis, stable. 14. Chronically bed bound. However, on physical examination, patient does have some muscle strength. Patient's would like physical therapy (PT) and occupational therapy (OT) to work on patient. 15. Diastolic heart failure with ejection fraction of 50-60% with echo in 2010. Patient also has hypertensive heart disease. 16. Severe peripheral artery disease status post multiple stents, including aortoiliac stents and also aortobifemoral stent. Continue to monitor. 17. Chronic kidney disease, stage III. Appears to be at baseline. Will monitor. 18. Carotid stenosis, status post endarterectomy in 2003, stable. Continue to monitor. 19. BPH. Continue to monitor. Patient is incontinent. At this point, will not place Powers. Patient has chronic Powers before admission. 20. Cataracts, stable. 21. History of abdominal aortic aneurysm, status post stents. 22. Moderate to severe dementia. On home medication. 23. Gout. Continue to monitor. No complaints. 24. Hypothyroidism. Continue Synthroid. 25. Vitamin D deficiency. Continue to monitor. 26. Deep venous thrombosis (DVT) prophylaxis. On warfarin. DISPOSITION: Will continue patient on broad-spectrum antibiotic, vancomycin and Zosyn. Will followup with the cultures. Patient does have lactic acidosis and reduced mentation. Patient's also would like placement for patient. Also, we have consulted PT wound care to help with dressing management to the left inguinal wound. Patient has been discussed with attending doctor, Dr. Snyder. My preceptor for this patient encounter was Kami Snyder DO. The preceptor was physically present in the building during the encounter and was fully available. As needed, all aspects of the patient interview, examination, medical decision making process, and medical care plan development were reviewed and approved by the preceptor. The preceptor is aware and concurs with the plan as stated in the body of this note and will attest to such by his/her co-signature. ANIKA
[2016-05-13 08:29] LABS: FOLATE 7.9 NG/ML (>5.4)
--- NOTE | 2016-05-13 09:27 | IPNPDOC ---
Assessment/Plan Date Seen The patient was seen on 05/13/16. Problems Problems: (1) Sepsis Status: Acute Problem Text: favor acute toxic metabolic encephalopathy on chronic moderate dementia source-chronic non-healing L inguinal wound c hernia repair mesh +/- UTI (05/12 UA 1+ LE) previous outpatient f/u c Dr. Cage-phone recommendations instituted-foam dressing D2 Zosyn and Vancomycin. 05/12/16 Wound, urine and blood cultures pending. (2) Altered mental status Status: Acute Problem Text: ? metabolic encephalopathy in presence of wound, leukocytosis and abnormal urine. (3) Dementia Status: Chronic Response to Treatment: Progressing Problem Text: Progressive. memantine held on admission. (4) Sacral decubitus ulcer, stage IV Status: Chronic Response to Treatment: Worse Problem Specific Plan: Monitor Clinically Problem Text: as per sepsis (5) BPH (benign prostatic hyperplasia) Status: Chronic Response to Treatment: Stable Problem Specific Plan: Monitor Clinically Problem Text: On home tamsulosin dosing 05/13 PVR 130 cc (6) Hypothyroid Status: Chronic Response to Treatment: Stable Problem Specific Plan: Monitor Clinically Problem Text: stable TSH of 2. Continue current thyroid supplement. (7) Atrial fibrillation Status: Chronic Response to Treatment: Stable Problem Specific Plan: Monitor Clinically Problem Text: On chronic Warfarin. Monitor INR daily. (8) Hyperlipidemia Status: Chronic Problem Text: on HD rosuva 5 /fenofibrate 145 at home. Plan / VTE VTE Prophylaxis Ordered?: Yes (Warfarin) Plan Diet: Supplement Advance Directives: DNR, Other Advance Directive (MOLST in chart: DNR/DNI) Subjective Review of Systems CC/HPI persistent global decreased LOC Events since last encounter Altered mental status in presence of progressive dementia. + sacral decub, stage 4. Afebrile. General: Reports: ROS Unobtainable Psych: Reports: Memory Issues Objective Physical Examination General Exam: Positive: Alert (to self only), No Acute Distress Eye Exam: Positive: PERRLA ENT Exam: Positive: Atraumatic Neck Exam: Positive: Supple, Negative: JVD Chest Exam: Positive: Clear to auscultation, Normal air movement Heart Exam: Positive: Normal S1, Normal S2, Rate Normal Abdomen Exam: Positive: Normal bowel sounds, Soft, Negative: Tenderness Extremity Exam: Negative: Clubbing, Cyanosis Skin Exam: Positive: Breakdown (stage 4 sacral decubitus ulcer. Sacral erythema and breakdown surrounding decubitus) Vital Signs/I&O Vital Signs Date Time Temp Pulse Resp B/P Pulse Ox O2 Delivery O2 Flow Rate FiO2 05/13/16 06:00 96.5 69 19 127/60 93 Room Air I&O- Last 24 Hours up to 6 AM 05/13/16 05:59 Intake Total 50 ml Output Total 125 ml Balance -75 ml Laboratory Data Labs 24H Laboratory Tests 2 05/12/16 13:01: Arterial Blood pH 7.493H, Arterial Blood Partial Pressure CO2 31.0L, Arterial Blood Partial Pressure O2 80.1, Arterial Blood Total CO2 24.2, Arterial Blood HCO3 23.3, Arterial Blood Base Excess 0.8, Arterial Blood Oxygen Saturation 96.9 , Blood Gas Bicarbonate Standard 25.2, Oxygen Delivery Device NASAL YENY 05/12/16 13:39: Bedside Glucose (Misc Panel) 136H 05/12/16 13:54: Aspartate Amino Transf (AST/SGOT) 38H, Alanine Aminotransferase (ALT/SGPT) 21, Alkaline Phosphatase 112, Total Bilirubin 1.0, Direct Bilirubin 0.5H, Albumin 2.6L, Albumin/Globulin Ratio 0.55L, Ammonia < 25, Anion Gap 8, Band Neutrophils 3, White Blood Count 14.2H, Red Blood Count 4.18L, Hemoglobin 13.5L, Hematocrit 42.1, Mean Corpuscular Volume 100.8H, Mean Corpuscular Hemoglobin 32.4, Mean Corpuscular Hemoglobin Concent 32.1, Red Cell Distribution Width 13.9, Platelet Count 141L, Neutrophils (%) (Auto) , Lymphocytes (%) (Auto) , Monocytes (%) ( Auto) , Eosinophils (%) (Auto) , Basophils (%) (Auto) , Neutrophils # (Auto) , Lymphocytes # (Auto) , Monocytes # (Auto) , Eosinophils # (Auto) , Basophils # ( Auto) , Calcium Level 9.1, Creatine Kinase MB 1.0, Creatine Kinase MB Relative Index 4.16H, Eosinophils (Manual) 1, Glomerular Filtration Rate > 60.0, Lactic Acid Level 2.4*H, Large Unclassified Cells # , Large Unclassified Cells % , Lymphocytes (Manual) 3L, Macrocytosis 1+, Monocytes (Manual) 7, Neutrophils 86H , Platelet Estimate DECREASED, Prothromb Time International Ratio 2.11, Prothrombin Time 23.7H, Thyroid Stimulating Hormone (TSH) 2.000, Total Creatine Kinase 24L, Total Protein 7.3, Troponin I 0.04 05/12/16 14:39: Urine Amorphous Sediment , Urine Appearance HAZY, Urine Color ELO, Urine pH 6.0, Urine Specific [place] 1.021, Urine Protein NEGATIVE, Urine Glucose (UA) NEGATIVE, Urine Ketones NEGATIVE, Urine Urobilinogen 4.0H, Urine Bilirubin NEGATIVE, Urine Leukocyte Esterase 1+H, Urine Bacteria (Auto) NEGATIVE, Urine Blood 2+H, Urine Calcium Carbonate Cryst(Auto) , Urine Calcium Oxalate Cryst ( Auto) SMALL, Urine Calcium Phosphate [place] (Auto) , Urine Cellular Casts , Urine Cystine Crystals , Urine Granular Casts (Auto) , Urine Hyaline Casts (Auto) 0, Urine Leucine Crystals , Urine Mucus (Auto) SMALL, Urine Nitrite NEGATIVE, Urine Oval Fat Bodies (Auto) , Urine RBC (Auto) 42H, Urine Renal Epithelial Cells , Urine Sperm (Auto) , Urine Squamous Epithelial Cells 0, Urine Transitional Epithelial Cells , Urine Trichomonas (Auto) , Urine Triple Phosphate Cryst (Auto) , Urine Tyrosine Crystals , Urine Uric Acid Crystals ( Auto) , Urine WBC (Auto) 28H, Urine Waxy Casts (Auto) , Urine Yeast-Like Cells ( Auto) 05/12/16 19:26: Lactic Acid Level 1.9, Magnesium Level 1.8, Thyroid Stimulating Hormone (TSH) 1.220 05/13/16 06:11: Anion Gap 9, White Blood Count 10.3H, Red Blood Count 3.87L, Hemoglobin 12.5L, Hematocrit 39.3L, Mean Corpuscular Volume 101.3H, Mean Corpuscular Hemoglobin 32.1, Mean Corpuscular Hemoglobin Concent 31.7L, Red Cell Distribution Width 13.1, Platelet Count 118L, Neutrophils (%) (Auto) 86.9H, Lymphocytes (%) (Auto) 4.7L, Monocytes (%) (Auto) 5.7H, Eosinophils (%) (Auto) 1.3, Basophils (%) (Auto ) 0.4, Neutrophils # (Auto) 9.0H, Lymphocytes # (Auto) 0.5L, Monocytes # (Auto) 0.6, Eosinophils # (Auto) 0.1, Basophils # (Auto) 0.0, Blood Urea Nitrogen 19H, Creatinine 0.70, Sodium Level 145, Potassium Level 3.6, Chloride Level 109H, Carbon Dioxide Level 27, Calcium Level 9.0, Folate 7.9, Glomerular Filtration Rate > 60.0, Large Unclassified Cells # 0.1, Large Unclassified Cells % 1.0, Vitamin B12 Level 1999H CBC/BMP Laboratory Tests 05/12/16 13:54 Red Blood Count 4.18 L, Mean Corpuscular Volume 100.8 H, Mean Corpuscular Hemoglobin 32.4, Mean Corpuscular Hemoglobin Concent 32.1, Red Cell Distribution Width 13.9, Neutrophils (%) (Auto) , Lymphocytes (%) (Auto) , Monocytes (%) (Auto) , Eosinophils (%) (Auto) , Basophils (%) (Auto) , Neutrophils # (Auto) , Lymphocytes # (Auto) , Monocytes # (Auto) , Eosinophils # (Auto) , Basophils # (Auto) 05/13/16 06:11 Red Blood Count 3.87 L, Mean Corpuscular Volume 101.3 H, Mean Corpuscular Hemoglobin 32.1, Mean Corpuscular Hemoglobin Concent 31.7 L, Red Cell Distribution Width 13.1, Neutrophils (%) (Auto) 86.9 H, Lymphocytes (%) (Auto) 4.7 L, Monocytes (%) (Auto) 5.7 H, Eosinophils (%) (Auto) 1.3, Basophils (%) ( Auto) 0.4, Neutrophils # (Auto) 9.0 H, Lymphocytes # (Auto) 0.5 L, Monocytes # ( Auto) 0.6, Eosinophils # (Auto) 0.1, Basophils # (Auto) 0.0, Calcium Level 9.0 FSBS Laboratory Tests Test 05/12/16 13:39 Range/Units Bedside Glucose (Misc Panel) 136 83-110 MG/DL Microbiology Microbiology 05/12/16 Blood Culture, Received Pending 05/12/16 Blood Culture, Received Pending 05/12/16 Urine Culture, Received Pending 05/12/16 Gram Stain, Received Pending 05/12/16 Wound Culture, Received Pending Ayah Ingram May 13, 2016 09:27 Cory Yousif M.D. May 13, 2016 13:54
[2016-05-13] MEDS: CYANOCOBALAMIN 500 MCG TAB PO SCH (09:33)
[2016-05-13] MEDS: DOCUSATE SODIUM 100 MG CAP PO SCH ×2 (09:33→20:12)
[2016-05-13] MEDS: ASPIRIN 81 MG ENTERIC TAB PO SCH (09:33)
[2016-05-13] MEDS: ROSUVASTATIN 10 MG TAB (CRESTOR) PO SCH (09:33)
[2016-05-13 14:00] VITALS: BP 119/67
[2016-05-13] MEDS: WARFARIN SOD 2 MG TAB PO SCH (17:14)
--- NOTE | 2016-05-13 18:42 | ECGEPIP ---
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
[2016-05-13] MEDS: TAMSULOSIN 0.4 MG CAP PO SCH (20:12)
[2016-05-13] MEDS: risperiDONE 0.25 MG TAB PO SCH (20:12)
[2016-05-13 22:00] VITALS: BP 101/51
[2016-05-14] MEDS: PIPERACILLIN/TAZOBACTAM SOD 3.375 GM in D5W MINI-BAG PLUS 50 ML IV SCH ×2 (05:43→12:46)
[2016-05-14] MEDS: LEVOTHYROXINE 0.05 MG TAB (50 MCG) PO SCH (05:43)
[2016-05-14 06:00] VITALS: BP 147/84
[2016-05-14 06:01] LABS: BASO % 0.3 % (0.0-1.0); EOS # 0.2 K/mm3 (0.0-0.50); EOS % 2.1 % (0.0-3.0); LARGE UNSTAINED CELL # 0.1 K/mm3 (0.0-0.4); LARGE UNSTAINED CELL % 1.5 % (0.0-4.0); LYMPH # 0.6 K/mm3 (1.5-4.5); LYMPH % 6.7 % (24.0-44.0); MEAN CORPUSCULAR HEMOGLOBIN 32.8 pg (27.0-33.0); MEAN CORPUSCULAR HGB CONC 32.9 g/dl (32.0-36.5); MEAN CORPUSCULAR VOLUME 99.8 fl (80.0-96.0); MONO # 0.5 K/mm3 (0.0-0.8); MONO % 5.4 % (0.0-5.0); NEUTROPHILS # 7.4 K/mm3 (1.8-7.7); PLATELET COUNT, AUTOMATED 104 k/mm3 (150-450); RED CELL DISTRIBUTION WIDTH 13.1 % (11.5-14.5); WHITE BLOOD COUNT 8.8 K/mm3 (4.0-10.0)
[2016-05-14 06:02] LABS: INR 3.04
[2016-05-14 06:11] LABS: ANION GAP 7 MEQ/L (8-16); BLOOD UREA NITROGEN 22 MG/DL (7-18); CALCIUM LEVEL 8.5 MG/DL (8.8-10.2); CARBON DIOXIDE LEVEL 28 MEQ/L (21-32); CHLORIDE LEVEL 108 MEQ/L (98-107); CREATININE FOR GFR 0.76 MG/DL (0.70-1.30); GLOMERULAR FILTRATION RATE > 60.0 (>35); GLUCOSE, FASTING 86 MG/DL (83-110); POTASSIUM SERUM 3.7 MEQ/L (3.5-5.1); SODIUM LEVEL 143 MEQ/L (136-145)
[2016-05-14] MEDS: ROSUVASTATIN 10 MG TAB (CRESTOR) PO SCH (09:53)
[2016-05-14] MEDS: ASPIRIN 81 MG ENTERIC TAB PO SCH (09:53)
[2016-05-14] MEDS: CYANOCOBALAMIN 500 MCG TAB PO SCH (09:53)
[2016-05-14] MEDS: DOCUSATE SODIUM 100 MG CAP PO SCH ×2 (09:53→20:14)
--- NOTE | 2016-05-14 12:25 | IPNPDOC ---
Assessment/Plan Date Seen The patient was seen on 05/14/16. Problems Problems: (1) Sepsis Status: Acute Problem Text: Patient is on day 3 of Zosyn and vancomycin. The wound grew out MSSA, so patient was switched to nafcillin. Patient has been seen previously in 2011 for the same, chronic, nonhealing inguinal wound. He had a history of mesh repair at this site. There is purulent drainage coming from the wound today. Patient also has positive UA. Previous outpatient f/u with Dr. Cage recommended foam dressing, however it appears that the areas developed an abscess. -Consult surgery for possible I&D versus need to remove any previous mesh material -Ultrasound for drainable collection -Changed to nafcillin for MSSA coverage; not meeting sepsis criteria today; if he worsens on monotherapy, we will broaden spectrum for bacteria not seen on culture -Blood cultures pending, no growth to date -Urine culture showed no growth, final (2) Altered mental status Status: Acute Problem Text: Likely metabolic encephalopathy secondary to sepsis and left inguinal abscess. Improved mentation today. -Continue antibiotics (3) Dementia Status: Chronic Response to Treatment: Progressing Problem Text: Progressive. memantine held on admission. (4) Sacral decubitus ulcer, stage IV Status: Chronic Response to Treatment: Worse Problem Specific Plan: Monitor Clinically Problem Text: as per sepsis (5) BPH (benign prostatic hyperplasia) Status: Chronic Response to Treatment: Stable Problem Specific Plan: Monitor Clinically Problem Text: On home tamsulosin dosing 05/13 PVR 130 cc (6) Hypothyroid Status: Chronic Response to Treatment: Stable Problem Specific Plan: Monitor Clinically Problem Text: stable TSH of 2. Continue current thyroid supplement. (7) Atrial fibrillation Status: Chronic Response to Treatment: Stable Problem Specific Plan: Monitor Clinically Problem Text: On chronic Warfarin. Monitor INR daily. -INR 3.0; hold Coumadin (8) Hyperlipidemia Status: Chronic Problem Text: on HD rosuva 5 /fenofibrate 145 at home. Plan / VTE VTE Prophylaxis Ordered?: Yes (Warfarin) Plan Diet: Supplement Advance Directives: DNR, Other Advance Directive (MOLST in chart: DNR/DNI) Disposition Continued inpatient care required for IV antibiotics, possible surgical incision and drainage of abscess, and further care Subjective Review of Systems CC/HPI The patient is a 86-year-old male admitted with a reason for visit of Alterted Mental Status. Events since last encounter Patient has no complaints today. He denies any pain, despite having an infection in his groin. He denies any fevers, chills, sweats. He has no other complaints. Constitutional: Denies: Chills, Fever, Malaise Skin: Reports: Other (chronic inguinal wound) Pulmonary: Denies: Cough, Dyspnea Cardiovascular: Denies: Chest Pain, Palpitations Gastrointestinal: Denies: Abdominal Pain (denies abdominal pain), Nausea, Vomiting Genitourinary: Denies: Dysuria Other systems 10 point review systems is otherwise negative Objective Physical Examination General Exam: Positive: Alert (to self only), No Acute Distress Eye Exam: Positive: PERRLA ENT Exam: Positive: Atraumatic Neck Exam: Positive: Supple, Negative: JVD Chest Exam: Positive: Clear to auscultation, Normal air movement Heart Exam: Positive: Normal S1, Normal S2, Rate Normal Abdomen Exam: Positive: Normal bowel sounds, Other (slight pressure around the patient's inguinal wounds produces purulent drainage; there is hard induration around the wounds), Soft, Negative: Tenderness Male Exam: Positive: Normal Genital Exam Extremity Exam: Negative: Clubbing, Cyanosis Skin Exam: Positive: Breakdown (stage 4 sacral decubitus ulcer. Sacral erythema and breakdown surrounding decubitus) Vital Signs/I&O Vital Signs Date Time Temp Pulse Resp B/P Pulse Ox O2 Delivery O2 Flow Rate FiO2 05/14/16 09:00 Room Air 05/14/16 06:00 96.5 68 17 147/84 95 I&O- Last 24 Hours up to 6 AM 05/14/16 06:00 Intake Total 1533 ml Output Total 0 ml Balance 1533 ml Laboratory Data Labs 24H Laboratory Tests 2 05/14/16 05:39: Anion Gap 7L, White Blood Count 8.8, Red Blood Count 3.39L, Hemoglobin 11.1L, Hematocrit 33.8L, Mean Corpuscular Volume 99.8H, Mean Corpuscular Hemoglobin 32.8, Mean Corpuscular Hemoglobin Concent 32.9, Red Cell Distribution Width 13.1 , Platelet Count 104L, Neutrophils (%) (Auto) 84.0H, Lymphocytes (%) (Auto) 6.7L , Monocytes (%) (Auto) 5.4H, Eosinophils (%) (Auto) 2.1, Basophils (%) (Auto) 0.3, Neutrophils # (Auto) 7.4, Lymphocytes # (Auto) 0.6L, Monocytes # (Auto) 0.5 , Eosinophils # (Auto) 0.2, Basophils # (Auto) 0.0, Blood Urea Nitrogen 22H, Creatinine 0.76, Sodium Level 143, Potassium Level 3.7, Chloride Level 108H, Carbon Dioxide Level 28, Calcium Level 8.5L, Glomerular Filtration Rate > 60.0, Large Unclassified Cells # 0.1, Large Unclassified Cells % 1.5, Prothromb Time International Ratio 3.04, Prothrombin Time 31.5H CBC/BMP Laboratory Tests 05/14/16 05:39 Calcium Level 8.5 L, Red Blood Count 3.39 L, Mean Corpuscular Volume 99.8 H, Mean Corpuscular Hemoglobin 32.8, Mean Corpuscular Hemoglobin Concent 32.9, Red Cell Distribution Width 13.1, Neutrophils (%) (Auto) 84.0 H, Lymphocytes (%) ( Auto) 6.7 L, Monocytes (%) (Auto) 5.4 H, Eosinophils (%) (Auto) 2.1, Basophils ( %) (Auto) 0.3, Neutrophils # (Auto) 7.4, Lymphocytes # (Auto) 0.6 L, Monocytes # (Auto) 0.5, Eosinophils # (Auto) 0.2, Basophils # (Auto) 0.0 Microbiology Microbiology 05/12/16 Blood Culture - Preliminary, Resulted No growth after 24 hours . All specim... 05/12/16 Blood Culture - Preliminary, Resulted No growth after 24 hours . All specim... 05/12/16 Urine Culture - Final, Complete 05/12/16 Gram Stain - Final, Complete 05/12/16 Wound Culture - Final, Complete Staphylococcus Aureus BRIGIDO POON MD May 14, 2016 12:25
[2016-05-14 13:11] VITALS: BP 185/85
[2016-05-14 14:00] VITALS: BP 105/58
[2016-05-14] MEDS: NAFCILLIN SOD 2 GM in D5W MINI-BAG PLUS 100 ML IV SCH ×2 (16:43→20:00)
--- NOTE | 2016-05-14 17:17 | REP ---
ULTRASOUND LEFT GROIN: Ultrasound left groin is performed to evaluate for underlying fluid collection. There is reportedly a wound in the left inguinal region which is draining. No drainable fluid is seen at the site of the left inguinal wound. An open tract is seen containing fluid as well echogenic area measuring about 6 mm in diameter. This could represent a foreign body or some packing material. Signed by Damián Stiles MD 05/18/2016 03:27 P
[2016-05-14] MEDS: risperiDONE 0.25 MG TAB PO SCH (20:14)
[2016-05-14] MEDS: TAMSULOSIN 0.4 MG CAP PO SCH (20:14)
--- NOTE | 2016-05-14 21:32 | EDDOCDS ---
Physician Documentation [facility] Name: Jerry Rossi Age: 86 yrs Sex: Male : 1930 Arrival Date: 05/12/2016 Time: 12:51 Bed Admit Hold Private MD: Cory Yousif Disposition: 05/12/16 16:14 Hospitalization ordered by Kami Snyder for Observation. Preliminary diagnosis are Dehydration, Elevated white blood cell count, Altered mental status, unspecified. - Bed requested for 4 [place]. - Status is Observation. af2 - Condition is Stable. - Problem is new. - Symptoms are unchanged. Historical: - Allergies: no known allergies; - Home Meds: 1. Aricept 10 mg Oral tab 1 tab nightly 2. aspirin 81 mg Oral TbEC 1 tab once daily 3. Coumadin 1 mg oral tab 4. Crestor 5 mg oral tab 5. fenofibrate 134mg oral once daily 6. levothyroxine 50 mcg Oral tab 1 tab once daily 7. vitamin b12 1mg daily 8. tamsulosin 0.4 mg oral cp24 1 cap once daily 9. Vitamin D3 5,000 unit oral tab daily 10. risperidone 0.25 mg oral tab - PMHx: a fib; CAD; caroitd artery stenosis; Gout; hyperlipidemia; hypertrophy prostate with oobstruction; Hypothyroidism; iron deficency anemia; paroxysmal a fib; senile dementia; stage 3 kidney disease; thrombocytopenia; - PSHx: Cystectomy; Heart Surgery; Stents, Coronary; Cataract Surgery; CABG; Pacemaker Insertion; Inguinal hernia repair.; AortoBifem stenting; - Social history: Smoking status: other No barriers to communication noted, The patient speaks fluent Kosovan. - Family history: Not pertinent. - : The pt / caregiver states he / she is on anticoagulants: coumadin. Home medication list is obtained from [employer] import data, a discharge med list. - Exposure Risk Screening:: None identified. Vital Signs: 05/12 13:15 BP 128 / 60; Pulse 69; Resp 20; Temp 99(TE); Pulse Ox 96% on R/A; Weight 77.11 kg / 170 jf3 lbs (R); Height 5 ft. 10 in. (177.80 cm) (R); Pain 0/10; 16:37 BP 122 / 58 (auto/); af2 16:39 Pulse 50 MON; Pulse Ox 100% ; af2 16:48 Pulse 68 MON; Pulse Ox 100% ; jf3 16:52 BP 127 / 60 (auto/); jf3 17:07 BP 128 / 69 (auto/); jf3 17:07 Pulse 86 MON; Pulse Ox 100% ; jf3 17:22 BP 136 / 67 (auto/); jf3 17:22 Pulse 68 MON; Pulse Ox 100% ; jf3 17:37 BP 140 / 70 (auto/); jf3 17:37 Pulse 68 MON; Pulse Ox 100% ; jf3 17:52 BP 141 / 67 (auto/); jf3 17:52 Pulse 68 MON; Pulse Ox 100% ; jf3 18:06 Pulse 70 MON; Pulse Ox 99% ; jf3 18:07 BP 146 / 68 (auto/); jf3 18:20 Pulse 68 MON; Pulse Ox 97% ; jf3 18:22 BP 134 / 67 (auto/); jf3 18:33 Pulse 68 MON; Pulse Ox 85% ; jf3 18:37 BP 132 / 71 (auto/); jf3 19:24 BP 158 / 72 (auto/); jf3 19:26 Pulse 68 MON; Pulse Ox 99% ; jf3 19:36 Pulse 68 MON; Pulse Ox 99% ; jf3 19:37 BP 163 / 73 (auto/); jf3 19:49 Pulse 70 MON; Pulse Ox 98% ; jf3 19:50 Pulse 68 MON; Pulse Ox 98% ; jf3 19:50 BP 162 / 73 (auto/); jf3 19:52 BP 154 / 70 (auto/); jf3 19:54 BP 162 / 73 RA; Pulse 73; Resp 18 S; Temp 97.6(TE); Pulse Ox 99% on R/A; af2 13:15 Body Mass Index 24.39 (77.11 kg, 177.80 cm) jf3 MDM: 12:54 Metal Burnisher/Pulse Ox/q 15 min VS ordered. le 12:54 Accucheck ordered. le 12:54 IV Saline Lock ordered. le 12:54 Oxygen at 4L/Min NC or Home dosage ordered. le 12:54 Rhythm Strip to chart ordered. le 12:54 Call Respiratory ordered. le 12:54 CBC with Diff Ordered. EDMS 12:54 Cardiac Injury Profile Ordered. EDMS 12:54 Liver Profile Ordered. EDMS 12:54 MED Profile Ordered. EDMS 12:54 Thyroid Stimulating Hormone Ordered. EDMS 12:54 Troponin Ordered. EDMS 12:54 Urinalysis Ordered. EDMS 12:54 Urine Culture Ordered. EDMS 12:55 Call Respiratory complete. brie 12:55 -Arterial Blood Gas Ordered. EDMS 12:55 Ammonia ([place] Tube on Ice, Not [place]) Ordered. EDMS 12:56 Chest, 1 View Ordered. EDMS 12:56 ECG WITH READING ER PHYS+CARDIAG ordered. EDMS 12:56 INR Ordered. EDMS 13:17 Lactic Acid ([place] tube on ice) Ordered. EDMS 13:35 -Arterial Blood Gas Reviewed. le 13:43 BED REQUEST+ADM ordered. EDMS 13:47 Financial registration complete. mm15 13:53 NS 0.9% 500 ml IV at bolus once ordered. le 14:00 [facility] Payment Agreement was scanned into [employer] and attached to record. mm15 14:25 DIFFERENTIAL NO CHARGE Ordered. EDMS 14:37 CBC with Diff Reviewed. le 14:37 INR Reviewed. le 14:37 Fingerstick Blood Sugar Reviewed. le 14:37 Ammonia ([place] Tube on Ice, Not [place]) Reviewed. le 15:58 CBC with Diff Reviewed. le 15:58 Cardiac Injury Profile Reviewed. le 15:58 Liver Profile Reviewed. le 15:58 MED Profile Reviewed. le 15:58 Urinalysis Reviewed. le 15:58 Lactic Acid ([place] tube on ice) Reviewed. le 15:58 Thyroid Stimulating Hormone Reviewed. le 15:58 Troponin Reviewed. le 15:58 PLATELET ESTIMATE Reviewed. le 15:58 Chest, 1 View Reviewed. le 16:01 NS 0.9% 500 ml IV at bolus once ordered. le 16:01 vancomycin (loading dose for pt. wt. 70-79kg) 1750 mg IVPB once ordered. le 16:01 Piperacillin-Tazobactam 3.375 grams IVPB once over 30 mins; dilute in 50mL of NS or D5W le ordered. 16:03 -Blood Culture (Adults Only), peripheral from different site, or from device/port/PICC le etc. if present ordered. 16:03 -Blood Culture Ordered. EDMS 16:06 BLOOD CULTURES Ordered. EDMS 16:07 -Blood Culture (Adults Only), peripheral from different site, or from device/port/PICC mt4 etc. if present complete. 18:35 PUREED DIET ordered. EDMS 18:[address] AND GRAM [address] Ordered. EDMS 18:38 Admission / Observation Status ordered. EDMS 18:41 MAGNESIUM LEVEL Ordered. EDMS 18:41 THYROID STIMULATING HORMONE Ordered. EDMS 18:41 LACTIC ACID LEVEL, LACTATE Ordered. EDMS 18:41 PHYSICAL THERAPY EVAL & TREAT ordered. EDMS 19:32 CBC WITH DIFFERENTIAL Ordered. EDMS 19:32 BASIC METABOLIC PROFILE Ordered. EDMS 20:24 vancomycin (loading dose for pt. wt. 40-49kg) 1000 mg IVPB once ordered. af2 05/13 03:23 T-Sheet-- Draft Copy was scanned into [employer] and attached to record. hs2 11:33 ECG/EKG was scanned into [employer] and attached to record. gb 11:33 Other: MOLST was scanned into [employer] and attached to record. gb Point of Care Testing: Blood Glucose: 05/12 13:41 Blood Glucose: 136 mg/dL; jf3 Ranges: Administered Medications: 14:24 Drug: NS 0.9% 500 ml [sodium chloride 0.9 % injection solution] Route: IV; Rate: bolus; jf3 Site: left forearm; 15:25 Follow up: IV Status: Completed infusion; IV Intake: 500ml jf3 16:51 Drug: NS 0.9% 500 ml [sodium chloride 0.9 % injection solution] Route: IV; Rate: bolus; jf3 Site: left forearm; 16:51 Drug: Piperacillin-Tazobactam 3.375 grams [piperacillin-tazobactam 3.375 gram jf3 intravenous solution] Route: IVPB; Infused Over: 30 mins; Site: left forearm; 19:55 Follow up: IV Status: Completed infusion; IV Intake: 50ml jf3 20:24 Not Given (Duplicate Order): vancomycin (loading dose for pt. wt. 70-79kg) 1750 mg IVPB af2 once 20:24 Drug: vancomycin (loading dose for pt. wt. 40-49kg) 1000 mg [vancomycin 1,000 mg af2 intravenous injection] Route: IVPB; Site: left forearm; Signatures: Dispatcher [employer] EDMS Kayla Garduno, ELISEO RN Meredith Santacruz, Reg Reg Ofelia Vela, MAGNAFLUX OPERATOR MAGNAFLUX OPERATOR Julia Freeman mt4 Yolanda Vital, PIPE ORGAN MECHANIC APPRENTICE PIPE ORGAN MECHANIC APPRENTICE brie Matheus Montelongo mm15 Leanne Ayala,RN RN af2 Casimiro Dotson,ELISEO RN jf3 Rena Spence, Reg Reg hs2 The chart was reviewed and I authenticate all verbal orders and agree with the evaluation and treatment provided.Attachments: 14:00 [facility] Payment Agreement mm15 05/13 03:23 T-Sheet-- Draft Copy hs2 11:33 ECG/EKG gb Chart Complete MTDD
--- NOTE | 2016-05-14 21:32 | EDDOCDS ---
Physician Documentation [facility] Name: Jerry Rossi Age: 86 yrs Sex: Male : 1930 Arrival Date: 05/12/2016 Time: 12:51 Bed Admit Hold Private MD: Cory Yousif Disposition: 05/12/16 16:14 Hospitalization ordered by Kami Snyder for Observation. Preliminary diagnosis are Dehydration, Elevated white blood cell count, Altered mental status, unspecified. - Bed requested for 4 [place]. - Status is Observation. af2 - Condition is Stable. - Problem is new. - Symptoms are unchanged. Historical: - Allergies: no known allergies; - Home Meds: 1. Aricept 10 mg Oral tab 1 tab nightly 2. aspirin 81 mg Oral TbEC 1 tab once daily 3. Coumadin 1 mg oral tab 4. Crestor 5 mg oral tab 5. fenofibrate 134mg oral once daily 6. levothyroxine 50 mcg Oral tab 1 tab once daily 7. vitamin b12 1mg daily 8. tamsulosin 0.4 mg oral cp24 1 cap once daily 9. Vitamin D3 5,000 unit oral tab daily 10. risperidone 0.25 mg oral tab - PMHx: a fib; CAD; caroitd artery stenosis; Gout; hyperlipidemia; hypertrophy prostate with oobstruction; Hypothyroidism; iron deficency anemia; paroxysmal a fib; senile dementia; stage 3 kidney disease; thrombocytopenia; - PSHx: Cystectomy; Heart Surgery; Stents, Coronary; Cataract Surgery; CABG; Pacemaker Insertion; Inguinal hernia repair.; AortoBifem stenting; - Social history: Smoking status: other No barriers to communication noted, The patient speaks fluent Jordanian. - Family history: Not pertinent. - : The pt / caregiver states he / she is on anticoagulants: coumadin. Home medication list is obtained from [place] import data, a discharge med list. - Exposure Risk Screening:: None identified. Vital Signs: 05/12 13:15 BP 128 / 60; Pulse 69; Resp 20; Temp 99(TE); Pulse Ox 96% on R/A; Weight 77.11 kg / 170 jf3 lbs (R); Height 5 ft. 10 in. (177.80 cm) (R); Pain 0/10; 16:37 BP 122 / 58 (auto/); af2 16:39 Pulse 50 MON; Pulse Ox 100% ; af2 16:48 Pulse 68 MON; Pulse Ox 100% ; jf3 16:52 BP 127 / 60 (auto/); jf3 17:07 BP 128 / 69 (auto/); jf3 17:07 Pulse 86 MON; Pulse Ox 100% ; jf3 17:22 BP 136 / 67 (auto/); jf3 17:22 Pulse 68 MON; Pulse Ox 100% ; jf3 17:37 BP 140 / 70 (auto/); jf3 17:37 Pulse 68 MON; Pulse Ox 100% ; jf3 17:52 BP 141 / 67 (auto/); jf3 17:52 Pulse 68 MON; Pulse Ox 100% ; jf3 18:06 Pulse 70 MON; Pulse Ox 99% ; jf3 18:07 BP 146 / 68 (auto/); jf3 18:20 Pulse 68 MON; Pulse Ox 97% ; jf3 18:22 BP 134 / 67 (auto/); jf3 18:33 Pulse 68 MON; Pulse Ox 85% ; jf3 18:37 BP 132 / 71 (auto/); jf3 19:24 BP 158 / 72 (auto/); jf3 19:26 Pulse 68 MON; Pulse Ox 99% ; jf3 19:36 Pulse 68 MON; Pulse Ox 99% ; jf3 19:37 BP 163 / 73 (auto/); jf3 19:49 Pulse 70 MON; Pulse Ox 98% ; jf3 19:50 Pulse 68 MON; Pulse Ox 98% ; jf3 19:50 BP 162 / 73 (auto/); jf3 19:52 BP 154 / 70 (auto/); jf3 19:54 BP 162 / 73 RA; Pulse 73; Resp 18 S; Temp 97.6(TE); Pulse Ox 99% on R/A; af2 13:15 Body Mass Index 24.39 (77.11 kg, 177.80 cm) jf3 MDM: 12:54 Portfolio Administrator/Pulse Ox/q 15 min VS ordered. le 12:54 Accucheck ordered. le 12:54 IV Saline Lock ordered. le 12:54 Oxygen at 4L/Min NC or Home dosage ordered. le 12:54 Rhythm Strip to chart ordered. le 12:54 Call Respiratory ordered. le 12:54 CBC with Diff Ordered. EDMS 12:54 Cardiac Injury Profile Ordered. EDMS 12:54 Liver Profile Ordered. EDMS 12:54 MED Profile Ordered. EDMS 12:54 Thyroid Stimulating Hormone Ordered. EDMS 12:54 Troponin Ordered. EDMS 12:54 Urinalysis Ordered. EDMS 12:54 Urine Culture Ordered. EDMS 12:55 Call Respiratory complete. brie 12:55 -Arterial Blood Gas Ordered. EDMS 12:55 Ammonia ([place] Tube on Ice, Not [place]) Ordered. EDMS 12:56 Chest, 1 View Ordered. EDMS 12:56 ECG WITH READING ER PHYS+CARDIAG ordered. EDMS 12:56 INR Ordered. EDMS 13:17 Lactic Acid ([place] tube on ice) Ordered. EDMS 13:35 -Arterial Blood Gas Reviewed. le 13:43 BED REQUEST+ADM ordered. EDMS 13:47 Financial registration complete. mm15 13:53 NS 0.9% 500 ml IV at bolus once ordered. le 14:00 [facility] Payment Agreement was scanned into [employer] and attached to record. mm15 14:25 DIFFERENTIAL NO CHARGE Ordered. EDMS 14:37 CBC with Diff Reviewed. le 14:37 INR Reviewed. le 14:37 Fingerstick Blood Sugar Reviewed. le 14:37 Ammonia ([place] Tube on Ice, Not [place]) Reviewed. le 15:58 CBC with Diff Reviewed. le 15:58 Cardiac Injury Profile Reviewed. le 15:58 Liver Profile Reviewed. le 15:58 MED Profile Reviewed. le 15:58 Urinalysis Reviewed. le 15:58 Lactic Acid ([place]iles tube on ice) Reviewed. le 15:58 Thyroid Stimulating Hormone Reviewed. le 15:58 Troponin Reviewed. le 15:58 PLATELET ESTIMATE Reviewed. le 15:58 Chest, 1 View Reviewed. le 16:01 NS 0.9% 500 ml IV at bolus once ordered. le 16:01 vancomycin (loading dose for pt. wt. 70-79kg) 1750 mg IVPB once ordered. le 16:01 Piperacillin-Tazobactam 3.375 grams IVPB once over 30 mins; dilute in 50mL of NS or D5W le ordered. 16:03 -Blood Culture (Adults Only), peripheral from different site, or from device/port/PICC le etc. if present ordered. 16:03 -Blood Culture Ordered. EDMS 16:06 BLOOD CULTURES Ordered. EDMS 16:07 -Blood Culture (Adults Only), peripheral from different site, or from device/port/PICC mt4 etc. if present complete. 18:35 PUREED DIET ordered. EDMS 18:35 W[address] CULTURE AND GRAM ST Ordered. EDMS 18:38 Admission / Observation Status ordered. EDMS 18:41 MAGNESIUM LEVEL Ordered. EDMS 18:41 THYROID STIMULATING HORMONE Ordered. EDMS 18:41 LACTIC ACID LEVEL, LACTATE Ordered. EDMS 18:41 PHYSICAL THERAPY EVAL & TREAT ordered. EDMS 19:32 CBC WITH DIFFERENTIAL Ordered. EDMS 19:32 BASIC METABOLIC PROFILE Ordered. EDMS 20:24 vancomycin (loading dose for pt. wt. 40-49kg) 1000 mg IVPB once ordered. af2 05/13 03:23 T-Sheet-- Draft Copy was scanned into [employer] and attached to record. hs2 11:33 ECG/EKG was scanned into [employer] and attached to record. gb 11:33 Other: MOLST was scanned into [employer] and attached to record. gb Point of Care Testing: Blood Glucose: 05/12 13:41 Blood Glucose: 136 mg/dL; jf3 Ranges: Administered Medications: 14:24 Drug: NS 0.9% 500 ml [sodium chloride 0.9 % injection solution] Route: IV; Rate: bolus; jf3 Site: left forearm; 15:25 Follow up: IV Status: Completed infusion; IV Intake: 500ml jf3 16:51 Drug: NS 0.9% 500 ml [sodium chloride 0.9 % injection solution] Route: IV; Rate: bolus; jf3 Site: left forearm; 16:51 Drug: Piperacillin-Tazobactam 3.375 grams [piperacillin-tazobactam 3.375 gram jf3 intravenous solution] Route: IVPB; Infused Over: 30 mins; Site: left forearm; 19:55 Follow up: IV Status: Completed infusion; IV Intake: 50ml jf3 20:24 Not Given (Duplicate Order): vancomycin (loading dose for pt. wt. 70-79kg) 1750 mg IVPB af2 once 20:24 Drug: vancomycin (loading dose for pt. wt. 40-49kg) 1000 mg [vancomycin 1,000 mg af2 intravenous injection] Route: IVPB; Site: left forearm; Signatures: Dispatcher [employer] EDMS Kayla Garduno, ELISEO RN Meredith Santacruz, Reg Reg Ofelia Vela, TRAVEL RN OR TRAVEL RN OR Julia Freeman mt4 Yolanda Vital, ROD FILLER ROD FILLER brie Matheus Montelongo mm15 Leanne Ayala,RN RN af2 Casimiro Dotson,ELISEO RN jf3 Rena Spence, Reg Reg hs2 The chart was reviewed and I authenticate all verbal orders and agree with the evaluation and treatment provided.Attachments: 14:00 [facility] Payment Agreement mm15 05/13 03:23 T-Sheet-- Draft Copy hs2 11:33 ECG/EKG gb Chart Complete MTDD
--- NOTE | 2016-05-14 21:32 | EDDOCDS ---
Nurse's Notes [facility] Name: Jerry Rossi Age: 86 yrs Sex: Male : 1930 Arrival Date: 05/12/2016 Time: 12:51 Bed Admit Hold Private MD: Cory Yousif Diagnosis: Dehydration;Elevated white blood cell count;Altered mental status, unspecified Presentation: 05/12 13:05 Presenting complaint: EMS states: Pt sent by family members due to pt having increased jf3 levels of confusion and decreased levels of consiousness. Family told EMS pt has increased mumbling and "isn't doing well". Adult Sepsis Screening:. Suicide/Homicide risk assessment- the patient denies having any suicidal and/or homicidal ideations and does not present with any other emotional, behavioral or mental health complaints. Status: Patient is not a office services coordinator or dependent. Transition of care: patient was not received from another setting of care. 13:05 Acuity: SAFIA Level 3 jf3 13:05 Method Of Arrival: Ambulance jf3 19:31 Adult Sepsis Screening: The patient does not have new or worsening altered mentation. af2 Patient's respiratory rate is less than 22. Systolic blood pressure is greater than 100. Patient has a qSOFA score of 0- Negative Sepsis Screen. Triage Assessment: 13:15 General: Appears in no apparent distress, Behavior is cooperative. Pain: Denies pain. jf3 The patient is triaged at the bedside. See Assessment in Nurses Notes section of ED record. Neurological: Level of Consciousness is awake, confused, Oriented to person. Respiratory: Airway is patent Respiratory effort is even, unlabored, Respiratory pattern is regular, symmetrical. Historical: - Allergies: no known allergies; - Home Meds: 1. Aricept 10 mg Oral tab 1 tab nightly 2. aspirin 81 mg Oral TbEC 1 tab once daily 3. Coumadin 1 mg oral tab 4. Crestor 5 mg oral tab 5. fenofibrate 134mg oral once daily 6. levothyroxine 50 mcg Oral tab 1 tab once daily 7. vitamin b12 1mg daily 8. tamsulosin 0.4 mg oral cp24 1 cap once daily 9. Vitamin D3 5,000 unit oral tab daily 10. risperidone 0.25 mg oral tab - PMHx: a fib; CAD; caroitd artery stenosis; Gout; hyperlipidemia; hypertrophy prostate with oobstruction; Hypothyroidism; iron deficency anemia; paroxysmal a fib; senile dementia; stage 3 kidney disease; thrombocytopenia; - PSHx: Cystectomy; Heart Surgery; Stents, Coronary; Cataract Surgery; CABG; Pacemaker Insertion; Inguinal hernia repair.; AortoBifem stenting; - Social history: Smoking status: other No barriers to communication noted, The patient speaks fluent [place]. - Family history: Not pertinent. - : The pt / caregiver states he / she is on anticoagulants: coumadin. Home medication list is obtained from [employer] import data, a discharge med list. - Exposure Risk Screening:: None identified. Screenin:28 Screening information is obtained from the caregiver. Fall risk: At risk due to jf3 immobility, The following interventions are performed due to a positive Fall Risk Screen: Fall Risk is added to Special Handling on the patient Summary Screen. A Fall Risk Bracelet was applied to the patient. Side Rails are placed in the up position. A Call Chaves is given with instruction to call for help when getting out of bed. Fall Alert bracelet is placed on the patient. Assistance ADL's: Requires assistance with meal preparation, this assistance is provided by family members, bathing, assistance is provided by family members, dressing, assistance is provided by family members, toileting, assistance is provided by family members, ambulation, assistance is provided by family members, housework, assistance is provided by family members, medication administration, assistance is provided by family members. Abuse/DV Screen: The patient / caregiver reports he/she is: not in a situation that causes fear, pain or injury. Nutritional screening: No deficits noted. Advance Directives: There is an active DNR order and the pt has a copy here at this time. home support is inadequate. Assessment: 13:28 Adult Sepsis Screening: Patient has new or worsening altered mentation (1 point). jf3 Patient's respiratory rate is less than 22. Systolic blood pressure is greater than 100. Patient has a qSOFA score of 1- Negative Sepsis Screen. General: Appears in no apparent distress, comfortable, Behavior is cooperative. Pain: Denies pain. Neurological: Level of Consciousness is awake, confused, Oriented to person, place, Speech mumbles. Cardiovascular: Capillary refill < 3 seconds Heart tones S3 present Chest pain is denied. Respiratory: Airway is patent Respiratory effort is even, unlabored, Respiratory pattern is regular, symmetrical, Breath sounds with crackles inspiratory expiratory in left posterior lower lobe and right posterior lower lobe. GI: Abdomen is non- distended Bowel sounds present X 4 quads. Abd is soft and non tender X 4 quads. Derm: Skin is dry. 14:30 General: Appears in no apparent distress, comfortable, Behavior is cooperative. Pain: jf3 Denies pain. Respiratory: Airway is patent Respiratory effort is even, unlabored, Respiratory pattern is regular, symmetrical. 15:30 General: Appears in no apparent distress, comfortable, Behavior is cooperative. jf3 Respiratory: Respiratory effort is even, unlabored, Respiratory pattern is regular, symmetrical. 16:30 General: Appears in no apparent distress, comfortable, Behavior is cooperative. jf3 General: So at bedside. Pain: Denies pain. Respiratory: Respiratory effort is even, unlabored, Respiratory pattern is regular, symmetrical. 17:30 General: Appears in no apparent distress, comfortable, Behavior is cooperative. jf3 General: SO at bedside. IV fluids running. Pain: Denies pain. Respiratory: Respiratory effort is even, unlabored, Respiratory pattern is regular, symmetrical. 17:59 General: Hospitalist in room with pt and SO. QMP states pt will be aspiration jf3 precautions, and to d/c O2 via NC. 18:03 General: Ordered by Dr Lennon to d/c remainder of 500cc NS bolus upon completion of abx's.jf3 18:30 General: Appears in no apparent distress, comfortable, Behavior is cooperative. Pain: jf3 Denies pain. Cardiovascular: Capillary refill < 3 seconds. Respiratory: Airway is patent Respiratory effort is even, unlabored, Respiratory pattern is regular, symmetrical. 18:30 Derm: Skin is normal. jf3 19:30 General: Assumed care of pt at this time, offers no complaints at this time. Advised af2 regarding plan of care and room assignment. Will continue to monitor.. Respiratory: Airway is patent Respiratory effort is even, unlabored. 19:55 General: pt and updated regarding plan of care.. af2 Vital Signs: 13:15 BP 128 / 60; Pulse 69; Resp 20; Temp 99(TE); Pulse Ox 96% on R/A; Weight 77.11 kg (R); jf3 Height 5 ft. 10 in. (177.80 cm) (R); Pain 0/10; 16:37 BP 122 / 58 (auto/); af2 16:39 Pulse 50 MON; Pulse Ox 100% ; af2 16:48 Pulse 68 MON; Pulse Ox 100% ; jf3 16:52 BP 127 / 60 (auto/); jf3 17:07 BP 128 / 69 (auto/); jf3 17:07 Pulse 86 MON; Pulse Ox 100% ; jf3 17:22 BP 136 / 67 (auto/); jf3 17:22 Pulse 68 MON; Pulse Ox 100% ; jf3 17:37 BP 140 / 70 (auto/); jf3 17:37 Pulse 68 MON; Pulse Ox 100% ; jf3 17:52 BP 141 / 67 (auto/); jf3 17:52 Pulse 68 MON; Pulse Ox 100% ; jf3 18:06 Pulse 70 MON; Pulse Ox 99% ; jf3 18:07 BP 146 / 68 (auto/); jf3 18:20 Pulse 68 MON; Pulse Ox 97% ; jf3 18:22 BP 134 / 67 (auto/); jf3 18:33 Pulse 68 MON; Pulse Ox 85% ; jf3 18:37 BP 132 / 71 (auto/); jf3 19:24 BP 158 / 72 (auto/); jf3 19:26 Pulse 68 MON; Pulse Ox 99% ; jf3 19:36 Pulse 68 MON; Pulse Ox 99% ; jf3 19:37 BP 163 / 73 (auto/); jf3 19:49 Pulse 70 MON; Pulse Ox 98% ; jf3 19:50 Pulse 68 MON; Pulse Ox 98% ; jf3 19:50 BP 162 / 73 (auto/); jf3 19:52 BP 154 / 70 (auto/); jf3 19:54 BP 162 / 73 RA; Pulse 73; Resp 18 S; Temp 97.6(TE); Pulse Ox 99% on R/A; af2 13:15 Body Mass Index 24.39 (77.11 kg, 177.80 cm) jf3 Vitals: 13:15 Log In Time N/A - ambulance arrival. jf3 ED Course: 12:52 Patient visited by Yolanda Vital PCA. brie 12:52 Cory Yousif MD is Private Physician. brie 12:52 Ofelia Covarrubias FNP is [facility]. le 12:52 Patient moved to Waiting brie 12:52 Patient moved to 15 brie 12:59 Patient visited by Ofelia Covarrubias FNP. le 12:59 Patient visited by Ofelia Covarrubias FNP. le 13:08 Triage Initiated jf3 13:16 -Arterial Blood Gas Sent. kt1 13:28 The patient / caregiver is instructed regarding the plan of care and ED course. jf3 13:49 Patient visited by Nelly Ren PCA. rs6 13:49 EKG done. (by ED staff). Reviewed by Ofelia SMITH. rs6 13:50 Pt greeted and oriented to ED. Patient advised of names of staff involved in care, rs6 location of call chaves, wait times and NPO status. Accompanied by Significant Other, Patient has correct armband on for positive identification. Placed in gown. Bed in low position. Call light in reach. Side rails up X2. surveillance system monitor on. Pulse ox on. NIBP on. 13:51 Patient visited by Nelly Ren PCA. rs6 14:00 [facility] Payment Agreement was scanned into [employer] and attached to record. mm15 14:15 Cardiac Injury Profile Sent. jf3 14:15 Liver Profile Sent. jf3 14:15 MED Profile Sent. jf3 14:15 Thyroid Stimulating Hormone Sent. jf3 14:15 Troponin Sent. jf3 14:40 DIFFERENTIAL NO CHARGE Sent. jf3 14:41 Urinalysis Sent. jf3 14:41 Urine Culture Sent. jf3 14:42 Patient visited by Casimiro Dotson RN. jf3 14:53 Chest, 1 View Returned. EDMS 16:14 Kami Snyder is Hospitalizing Provider. le 16:52 Patient visited by Casimiro Dotson RN. jf3 17:08 Patient visited by Nelly Ren PCA. rs6 18:04 Patient visited by Casimiro Dotson,ELISEO. jf3 18:57 Leanne Ayala,RN is Primary Nurse. af2 19:03 Patient moved to Admit Hold [facility] :29 No procedures done that require assistance. af2 19:40 Patient visited by Leanne Ayala,RN. af2 19:55 Patient visited by Casimiro Dotson,ELISEO. jf3 19:56 Inserted other. af2 19:58 Patient visited by Leanne AyalaELISEO. af2 05/13 03:23 T-Sheet-- Draft Copy was scanned into [employer] and attached to record. hs2 11:33 ECG/EKG was scanned into [employer] and attached to record. gb 11:33 Other: MOLST was scanned into [employer] and attached to record. gb Administered Medications: 05/12 14:24 Drug: NS 0.9% 500 ml [sodium chloride 0.9 % injection solution] Route: IV; Rate: bolus; jf3 Site: left forearm; 15:25 Follow up: IV Status: Completed infusion; IV Intake: 500ml jf3 16:51 Drug: NS 0.9% 500 ml [sodium chloride 0.9 % injection solution] Route: IV; Rate: bolus; jf3 Site: left forearm; 16:51 Drug: Piperacillin-Tazobactam 3.375 grams [piperacillin-tazobactam 3.375 gram jf3 intravenous solution] Route: IVPB; Infused Over: 30 mins; Site: left forearm; 19:55 Follow up: IV Status: Completed infusion; IV Intake: 50ml jf3 20:24 Not Given (Duplicate Order): vancomycin (loading dose for pt. wt. 70-79kg) 1750 mg IVPB af2 once 20:24 Drug: vancomycin (loading dose for pt. wt. 40-49kg) 1000 mg [vancomycin 1,000 mg af2 intravenous injection] Route: IVPB; Site: left forearm; Point of Care Testing: Blood Glucose: 13:41 Blood Glucose: 136 mg/dL; jf3 Ranges: Intake: 15:25 IV: 500.00ml; Total: 500.00ml. jf3 19:55 IV: 50.00ml; Total: 550.00ml. jf3 RT: 13:16 ABG's drawn from left brachial artery pressure held for 5 minuntes no bleeding noted kt1 pressure bandage applied specimen sent pt. tolerated well. Order Results: Lab Order: CBC with Diff; SPEC'M 05/12/16 13:54 Test: WHITE BLOOD COUNT; Value: 14.2; Range: 4.0-10.0; Abnormal: Above high normal; Units: K/mm3; Status: F Test: RED BLOOD COUNT; Value: 4.18; Range: 4.30-6.10; Abnormal: Below low normal; Units: M/mm3; Status: F Test: HEMOGLOBIN; Value: 13.5; Range: 14.0-18.0; Abnormal: Below low normal; Units: g/dl; Status: F Test: HEMATOCRIT; Value: 42.1; Range: 42.0-52.0; Units: %; Status: F Test: MEAN CORPUSCULAR VOLUME; Value: 100.8; Range: 80.0-96.0; Abnormal: Above high normal; Units: fl; Status: F Test: MEAN CORPUSCULAR HEMOGLOBIN; Value: 32.4; Range: 27.0-33.0; Units: pg; Status: F Test: MEAN CORPUSCULAR HGB CONC; Value: 32.1; Range: 32.0-36.5; Units: g/dl; Status: F Test: RED CELL DISTRIBUTION WIDTH; Value: 13.9; Range: 11.5-14.5; Units: %; Status: F Test: PLATELET COUNT, AUTOMATED; Value: 141; Range: 150-450; Abnormal: Below low normal; Units: k/mm3; Status: F Test: NEUTROPHILS; Value: 86; Range: 35-75; Abnormal: Above high normal; Units: %; Status: F Test: BANDS; Value: 3; Range: < 11; Units: %; Status: F Test: LYMPHOCYTES; Value: 3; Range: 16-52; Abnormal: Below low normal; Units: %; Status: F Test: MONOCYTES; Value: 7; Range: 0-8; Units: %; Status: F Test: EOSINOPHILS; Value: 1; Range: 0-5; Units: %; Status: F Test: MACROCYTOSIS; Value: 1+; Status: F Lab Order: Cardiac Injury Profile; [facility] 05/12/16 13:54 Test: CPK CREATINE PHOSPHOKINASE; Value: 24; Range: 39-308; Abnormal: Below low normal; Units: U/L; Status: F Test: CK-MB VALUE MASS; Value: 1.0; Range: 0.0-3.6; Units: NG/ML; Status: F Test: MB/CK RELATIVE INDEX; Value: 4.16; Range: < OR =4; Abnormal: Above high normal; Status: F Test Note: ; DIAGNOSIS CRITERIA MMB ng/ml Relative Index (RI) NON-AMI < or = 5 N/A STILES ZONE > 5 < or = 4 AMI > 5 > 4 Lab Order: Liver Profile; [facility] 05/12/16 13:54 Test: AST/SGOT; Value: 38; Range: 15-37; Abnormal: Above high normal; Units: U/L; Status: F Test: ALT/SGPT; Value: 21; Range: 12-78; Units: U/L; Status: F Test: ALKALINE PHOSPHATASE; Value: 112; Range: 45-117; Units: U/L; Status: F Test: BILIRUBIN,TOTAL; Value: 1.0; Range: 0.2-1.0; Units: MG/DL; Status: F Test: BILIRUBIN,DIRECT; Value: 0.5; Range: 0.0-0.2; Abnormal: Above high normal; Units: MG/DL; Status: F Test: TOTAL PROTEIN; Value: 7.3; Range: 6.4-8.2; Units: GM/DL; Status: F Test: ALBUMIN; Value: 2.6; Range: 3.2-5.2; Abnormal: Below low normal; Units: GM/DL; Status: F Test: ALBUMIN/GLOBULIN RATIO; Value: 0.55; Range: 1.00-1.93; Abnormal: Below low normal; Status: F Lab Order: MED Profile; [facility] 05/12/16 13:54 Test: GLUCOSE, FASTING; Value: 129; Range: 83-110; Abnormal: Above high normal; Units: MG/DL; Status: F Test: BLOOD UREA NITROGEN; Value: 21; Range: 7-18; Abnormal: Above high normal; Units: MG/DL; Status: F Test: CREATININE FOR GFR; Value: 0.80; Range: 0.70-1.30; Units: MG/DL; Status: F Test: GLOMERULAR FILTRATION RATE; Value: > 60.0; Range: >35; Status: F Test: SODIUM LEVEL; Value: 143; Range: 136-145; Units: MEQ/L; Status: F Test: POTASSIUM SERUM; Value: 4.0; Range: 3.5-5.1; Units: MEQ/L; Status: F Test: CHLORIDE LEVEL; Value: 106; Range: 98-107; Units: MEQ/L; Status: F Test: CARBON DIOXIDE LEVEL; Value: 29; Range: 21-32; Units: MEQ/L; Status: F Test: ANION GAP; Value: 8; Range: 8-16; Units: MEQ/L; Status: F Test: CALCIUM LEVEL; Value: 9.1; Range: 8.8-10.2; Units: MG/DL; Status: F Test Note: ; Units are mL/min/1.73 m2 Chronic Kidney Disease Staging per NKF: Stage I & II GFR >=60 Normal to Mildly Decreased Stage III GFR 30-59 Moderately Decreased Stage IV GFR 15-29 Severely Decreased Stage V GFR <15 Very Little GFR Left ESRD GFR <15 on DRY WALL P[employer]ERER Lab Order: Thyroid Stimulating Hormone; SPEC' 05/12/16 13:54 Test: THYROID STIMULATING HORMONE; Value: 2.000; Range: 0.358-3.740; Units: uIU/ML; Status: F Lab Order: Troponin; [facility] 05/12/16 13:54 Test: TROPONIN I; Value: 0.04; Range: < 0.10; Units: NG/ML; Status: F Test Note: ; Troponin I Reference Interval for [employer] LOCI: 99th Percentile= 0.00-0.045 ng/ml Risk Stratification: <= 0.10 ng/ml Decreased Risk for Adverse Clinical Events. 0.10-1.50 ng/ml Increased Risk for Adverse Clinical Events. Evaluation of additional criterion and/or repeat testing in 2-6 hours is suggested to rule out myocardial damage. >= 1.50 ng/ml Indicative of Myocardial Injury. Lab Order: Urinalysis; [facility] 05/12/16 14:39 Test: APPEARANCE, URINE; Value: HAZY; Range: CLEAR; Status: F Test: COLOR, URINE; Value: LEANNE; Range: YELLOW; Status: F Test: PH,URINE; Value: 6.0; Range: 5.0-9.0; Units: UNITS; Status: F Test: SPECIFIC GRAVITY URINE AUTO; Value: 1.021; Range: 1.002-1.035; Status: F Test: PROTEIN, URINE AUTO; Value: NEGATIVE; Range: NEGATIVE; Units: mg/dL; Status: F Test: GLUCOSE, URINE (UA) AUTO; Value: NEGATIVE; Range: NEGATIVE; Units: mg/dL; Status: F Test: KETONE, URINE AUTO; Value: NEGATIVE; Range: NEGATIVE; Units: mg/dL; Status: F Test: UROBILINOGEN, URINE AUTO; Value: 4.0; Range: 0.0-2.0; Abnormal: Above high normal; Units: mg/dL; Status: F Test: BILIRUBIN, URINE AUTO; Value: NEGATIVE; Range: NEGATIVE; Status: F Test: NITRITE, URINE AUTO; Value: NEGATIVE; Range: NEGATIVE; Status: F Test: LEUKOCYTE ESTERASE, URINE AUTO; Value: 1+; Range: NEGATIVE; Abnormal: Above high normal; Status: F Test: BLOOD, URINE BLOOD; Value: 2+; Range: NEGATIVE; Abnormal: Above high normal; Status: F Test: WBC, URINE AUTO; Value: 28; Range: 0-3; Abnormal: Above high normal; Units: /HPF; Status: F Test: RBC, URINE AUTO; Value: 42; Range: 0-3; Abnormal: Above high normal; Units: /HPF; Status: F Test: BACTERIA, URINE AUTO; Value: NEGATIVE; Range: NEGATIVE; Status: F Test: SQUAMOUS EPITHELIAL CELL UR AU; Value: 0; Range: 0-6; Units: /HPF; Status: F Test: MUCUS, URINE; Value: SMALL; Range: NEGATIVE; Status: F Test: HYALINE CAST, URINE AUTO; Value: 0; Range: 0-1; Units: /LPF; Status: F Test: CALCIUM OXALATE CRYSTALS; Value: SMALL; Range: NONE; Status: F Lab Order: -Arterial Blood Gas; SPEC'M 05/12/16 13:01 Test: ABG pH (ARTERIAL); Value: 7.493; Range: 7.350-7.450; Abnormal: Above high normal; Units: UNITS; Status: F Test: ABG PARTIAL PRESSURE CO2; Value: 31.0; Range: 35.0-45.0; Abnormal: Below low normal; Units: mmHg; Status: F Test: ABG PARTIAL PRESSURE O2; Value: 80.1; Range: 75.0-100.0; Units: mmHg; Status: F Test: ABG TOTAL CO2; Value: 24.2; Range: 23.0-31.0; Units: MEQ/L; Status: F Test: ABG HCO3; Value: 23.3; Range: 22.0-26.0; Units: MEQ/L; Status: F Test: ABG BASE EXCESS; Value: 0.8; Range: -2.0-2.0; Status: F Test: ABG STANDARD HCO3; Value: 25.2; Range: 22.0-26.0; Units: MEQ/L; Status: F Test: ABG O2 SATURATION; Value: 96.9; Range: 95.0-99.0; Units: %; Status: F Test: ABG DEVICE; Value: NASAL YENY; Status: F Lab Order: Ammonia ([place] Tube on Ice, Not [place]); [facility] 05/12/16 13:54 Test: AMMONIA; Value: < 25; Range: <32; Units: uMOL/L; Status: F Lab Order: INR; [facility] 05/12/16 13:54 Test: PROTHROMBIN TIME; Value: 23.7; Range: 12.3-14.5; Abnormal: Above high normal; Units: SECONDS; Status: F Test: INR; Value: 2.11; Status: F Test Note: ; THERAPUTIC HUMAN INR VALUES INDICATIONS NORMAL RANGES PROPHYLAXIS/TREATMENT OF: VENOUS THROMBOSIS 2.0-3.0 PULMONARY EMBOLISM 2.0-3.0 PREVENTION OF SYSTEMIC EMBOLISM FROM: TISSUE HEART VALVES 2.0-3.0 ACUTE MYOCARDIAL INFARCTION 2.0-3.0 VALVULAR HEART DISEASE 2.0-3.0 ATRIAL FIBRILLATION 2.0-3.0 MECHANICAL VALVES(HIGH RISK) 2.5-3.5 RECURRENT MYOCARDIAL INFARCTION 2.5-3.5 Lab Order: Lactic Acid ([place] tube on ice); [facility] 05/12/16 13:54 Test: LACTIC ACID LEVEL, LACTATE; Value: 2.4; Range: 0.4-2.0; Abnormal: Above upper panic limits; Units: MMOL/L; Status: F Lab Order: Fingerstick Blood Sugar; [facility] 05/12/16 13:39 Test: BEDSIDE GLUCOSE; Value: 136; Range: 83-110; Abnormal: Above high normal; Units: MG/DL; Status: F Lab Order: PLATELET ESTIMATE; [facility] 05/12/16 13:54 Test: PLATELET ESTIMATE; Value: DECREASED; Range: NORMAL; Status: F Lab Order: MAGNESIUM LEVEL; [facility] 05/12/16 19:26 Test: MAGNESIUM LEVEL; Value: 1.8; Range: 1.8-2.4; Units: MG/DL; Status: F Lab Order: THYROID STIMULATING HORMONE; SPEC'M 05/12/16 19:26 Test: THYROID STIMULATING HORMONE; Value: 1.220; Range: 0.358-3.740; Units: uIU/ML; Status: F Lab Order: LACTIC ACID LEVEL, LACTATE; SPEC'M 05/12/16 19:26 Test: LACTIC ACID LEVEL, LACTATE; Value: 1.9; Range: 0.4-2.0; Units: MMOL/L; Status: F Radiology Order: Chest, 1 View Test: Chest, 1 View REASON FOR EXAMINATION: altered mental status; PORTABLE CHEST X-RAY:; ; Sitting AP view.; ; HISTORY: Altered mental status.; ; COMPARISON: Chest x-ray September 16, 2014.; ; FINDINGS: A bipolar pacemaker is seen in the right heart via the left side. EKG; electrodes are seen. There is calcific pleural plaquing bilaterally as before; fairly extensively. No new infiltrate is seen. Moderate cardiomegaly unchanged.; Prior sternotomy.; ; IMPRESSION: Extensive calcific pleural plaquing bilaterally. Cardiomegaly with; pacemaker. No acute infiltrate.; ; ; Signed by; Melvin Waldrop MD 05/12/2016 02:44 P; Outcome: 16:14 Decision to Hospitalize by Provider. le 19:55 Discharge Assessment: Patient awake, alert and oriented x 3. No cognitive and/or af2 functional deficits noted. Patient verbalized understanding of disposition instructions. patient administered narcotics - no. The following High Risk Discharge criteria are identified: None. Admitted to Med/Surg accompanied by tech, via stretcher, with chart. Condition: stable. No special radiology studies were completed. Property :Personal belongings accompany Pt. 20:31 Patient left the ED. af2 Signatures: Dispatcher [employer] EDNE Kayla Garduno RN RN Meredith Santacruz, Reg Reg gb Virginia Garcia kt1 Ofelia Covarrubias, BILINGUAL CASE MANAGER BILINGUAL CASE MANAGER Yolanda Schneider, USABILITY ENGINEER USABILITY ENGINEER brie Matheus Montelongo mm15 Nelly Ren, USABILITY ENGINEER USABILITY ENGINEER rs6 Leanne AyalaRN RN af2 Casimiro Dotson RN RN jf3 Rena Spence, Reg Reg hs2 Chart Complete MTDD
[2016-05-14 22:00] VITALS: BP 122/60
[2016-05-15] MEDS: NAFCILLIN SOD 2 GM in D5W MINI-BAG PLUS 100 ML IV SCH ×7 (04:00→20:12)
[2016-05-15] MEDS: LEVOTHYROXINE 0.05 MG TAB (50 MCG) PO SCH (05:47)
[2016-05-15 06:00] VITALS: BP 122/60
[2016-05-15 06:35] LABS: INR 3.32
[2016-05-15 06:38] LABS: BASO % 0.3 % (0.0-1.0); EOS # 0.2 K/mm3 (0.0-0.50); EOS % 1.8 % (0.0-3.0); LARGE UNSTAINED CELL # 0.1 K/mm3 (0.0-0.4); LARGE UNSTAINED CELL % 1.3 % (0.0-4.0); LYMPH # 0.4 K/mm3 (1.5-4.5); LYMPH % 4.9 % (24.0-44.0); MEAN CORPUSCULAR HEMOGLOBIN 31.9 pg (27.0-33.0); MEAN CORPUSCULAR HGB CONC 31.6 g/dl (32.0-36.5); MEAN CORPUSCULAR VOLUME 100.8 fl (80.0-96.0); MONO # 0.5 K/mm3 (0.0-0.8); MONO % 5.3 % (0.0-5.0); NEUTROPHILS # 7.5 K/mm3 (1.8-7.7); NEUTROPHILS % 86.4 % (36.0-66.0); PLATELET COUNT, AUTOMATED 115 k/mm3 (150-450); RED CELL DISTRIBUTION WIDTH 13.1 % (11.5-14.5); WHITE BLOOD COUNT 8.7 K/mm3 (4.0-10.0)
[2016-05-15 06:54] LABS: ANION GAP 7 MEQ/L (8-16); BLOOD UREA NITROGEN 21 MG/DL (7-18); CALCIUM LEVEL 9.3 MG/DL (8.8-10.2); CARBON DIOXIDE LEVEL 29 MEQ/L (21-32); CHLORIDE LEVEL 107 MEQ/L (98-107); CREATININE FOR GFR 0.88 MG/DL (0.70-1.30); GLOMERULAR FILTRATION RATE > 60.0 (>35); GLUCOSE, FASTING 105 MG/DL (83-110); POTASSIUM SERUM 3.8 MEQ/L (3.5-5.1); SODIUM LEVEL 143 MEQ/L (136-145)
[2016-05-15] MEDS ORDERED: MOM 30ML SUSPENSION UDC PO PRN (08:15)
--- NOTE | 2016-05-15 08:42 | IPNPDOC ---
Assessment/Plan Date Seen The patient was seen on 05/15/16. Problems Problems: (1) Sepsis Status: Acute Problem Text: Patient is on day 3 of Zosyn and vancomycin. The wound grew out MSSA, so patient was switched to nafcillin. Patient has been seen previously in 2011 for the same, chronic, nonhealing inguinal wound. He had a history of mesh repair at this site. There is purulent drainage coming from the wound today. Patient also has positive UA. Previous outpatient f/u with Dr. Cage recommended foam dressing, however it appears that the areas developed an abscess. -Consult surgery for possible I&D versus need to remove any previous mesh material -Ultrasound for drainable collection -Changed to nafcillin for MSSA coverage; not meeting sepsis criteria today; if he worsens on monotherapy, we will broaden spectrum for bacteria not seen on culture -Blood cultures pending, no growth to date -Urine culture showed no growth, final 05/15/16 - Pt is on Day 2 of Nafcillin. (2) Altered mental status Status: Acute Problem Text: Likely metabolic encephalopathy secondary to sepsis and left inguinal abscess. Improved mentation today. -Continue antibiotics (3) Dementia Status: Chronic Response to Treatment: Progressing Problem Text: Progressive. memantine held on admission. (4) Sacral decubitus ulcer, stage IV Status: Chronic Response to Treatment: Worse Problem Specific Plan: Monitor Clinically Problem Text: as per sepsis (5) BPH (benign prostatic hyperplasia) Status: Chronic Response to Treatment: Stable Problem Specific Plan: Monitor Clinically Problem Text: On home tamsulosin dosing 05/13 PVR 130 cc (6) Hypothyroid Status: Chronic Response to Treatment: Stable Problem Specific Plan: Monitor Clinically Problem Text: stable TSH of 2. Continue current thyroid supplement. (7) Atrial fibrillation Status: Chronic Response to Treatment: Stable Problem Specific Plan: Monitor Clinically Problem Text: On chronic Warfarin. Monitor INR daily. -INR 3.0; hold Coumadin (8) Hyperlipidemia Status: Chronic Problem Text: on HD rosuva 5 /fenofibrate 145 at home. (9) Constipation Status: Acute Problem Text: Will order Milk of Mag. Plan / VTE VTE Prophylaxis Ordered?: Yes (Warfarin) Plan Diet: Supplement Advance Directives: DNR, Other Advance Directive (MOLST in chart: DNR/DNI) Plan Text Attending attestation: I saw and evaluated the patient, and I agree with the plan of care as discussed and documented above. Cj Horne MD Subjective Review of Systems CC/HPI The patient is a 86-year-old male admitted with a reason for visit of Alterted Mental Status. Events since last encounter Pt c/o constipation. Pt denies pain, CP, Abd pain, SOB. Constitutional: Denies: Chills, Fever Pulmonary: Denies: Dyspnea Cardiovascular: Denies: Chest Pain Gastrointestinal: Reports: Constipation, Denies: Abdominal Pain, Nausea, Vomiting Objective Physical Examination General Exam: Positive: Alert (to self only), No Acute Distress Eye Exam: Positive: PERRLA ENT Exam: Positive: Atraumatic Neck Exam: Positive: Supple, Negative: JVD Chest Exam: Positive: Clear to auscultation, Normal air movement Heart Exam: Positive: Normal S1, Normal S2, Rate Normal Abdomen Exam: Positive: Normal bowel sounds, Other (slight pressure around the patient's inguinal wounds produces purulent drainage; there is hard induration around the wounds), Soft, Negative: Tenderness Male Exam: Positive: Normal Genital Exam Extremity Exam: Negative: Clubbing, Cyanosis Skin Exam: Positive: Breakdown (stage 4 sacral decubitus ulcer. Sacral erythema and breakdown surrounding decubitus) Vital Signs/I&O Vital Signs Date Time Temp Pulse Resp B/P Pulse Ox O2 Delivery O2 Flow Rate FiO2 05/15/16 06:00 97.4 67 19 122/60 94 Room Air I&O- Last 24 Hours up to 6 AM 05/15/16 06:00 Intake Total 900 ml Output Total 375 ml Balance 525 ml Laboratory Data Labs 24H Laboratory Tests 2 05/15/16 05:54: Anion Gap 7L, White Blood Count 8.7, Red Blood Count 4.02L, Hemoglobin 12.8L, Hematocrit 40.5L, Mean Corpuscular Volume 100.8H, Mean Corpuscular Hemoglobin 31.9, Mean Corpuscular Hemoglobin Concent 31.6L, Red Cell Distribution Width 13.1, Platelet Count 115L, Neutrophils (%) (Auto) 86.4H, Lymphocytes (%) (Auto) 4.9L, Monocytes (%) (Auto) 5.3H, Eosinophils (%) (Auto) 1.8, Basophils (%) (Auto ) 0.3, Neutrophils # (Auto) 7.5, Lymphocytes # (Auto) 0.4L, Monocytes # (Auto) 0.5, Eosinophils # (Auto) 0.2, Basophils # (Auto) 0.0, Blood Urea Nitrogen 21H, Creatinine 0.88, Sodium Level 143, Potassium Level 3.8, Chloride Level 107, Carbon Dioxide Level 29, Calcium Level 9.3, Glomerular Filtration Rate > 60.0, Large Unclassified Cells # 0.1, Large Unclassified Cells % 1.3, Prothromb Time International Ratio 3.32, Prothrombin Time 33.7H CBC/BMP Laboratory Tests 05/15/16 05:54 Calcium Level 9.3, Red Blood Count 4.02 L, Mean Corpuscular Volume 100.8 H, Mean Corpuscular Hemoglobin 31.9, Mean Corpuscular Hemoglobin Concent 31.6 L, Red Cell Distribution Width 13.1, Neutrophils (%) (Auto) 86.4 H, Lymphocytes (% ) (Auto) 4.9 L, Monocytes (%) (Auto) 5.3 H, Eosinophils (%) (Auto) 1.8, Basophils (%) (Auto) 0.3, Neutrophils # (Auto) 7.5, Lymphocytes # (Auto) 0.4 L, Monocytes # (Auto) 0.5, Eosinophils # (Auto) 0.2, Basophils # (Auto) 0.0 Microbiology Microbiology 05/12/16 Blood Culture - Preliminary, Resulted No Growth after 48 hours. All Specime... 05/12/16 Blood Culture - Preliminary, Resulted No Growth after 48 hours. All Specime... 05/12/16 Urine Culture - Final, Complete 05/12/16 Gram Stain - Final, Complete 05/12/16 Wound Culture - Final, Complete Staphylococcus Aureus Jimbo Mendoza May 15, 2016 08:42 CJ HORNE MD May 17, 2016 11:59
[2016-05-15] MEDS: ASPIRIN 81 MG ENTERIC TAB PO SCH (09:28)
[2016-05-15] MEDS: DOCUSATE SODIUM 100 MG CAP PO SCH ×2 (09:28→20:12)
[2016-05-15] MEDS: CYANOCOBALAMIN 500 MCG TAB PO SCH (09:28)
[2016-05-15] MEDS: ROSUVASTATIN 10 MG TAB (CRESTOR) PO SCH (09:28)
[2016-05-15 14:00] VITALS: BP 142/60
[2016-05-15] MEDS: risperiDONE 0.25 MG TAB PO SCH (20:12)
[2016-05-15] MEDS: TAMSULOSIN 0.4 MG CAP PO SCH (20:12)
[2016-05-15 22:00] VITALS: BP 108/71
[2016-05-16] MEDS: NAFCILLIN SOD 2 GM in D5W MINI-BAG PLUS 100 ML IV SCH ×5 (00:21→16:41)
[2016-05-16 06:00] VITALS: BP 112/60
[2016-05-16] MEDS: LEVOTHYROXINE 0.05 MG TAB (50 MCG) PO SCH (06:19)
[2016-05-16 06:40] LABS: BASO # 0.1 K/mm3 (0.0-0.2); BASO % 0.6 % (0.0-1.0); EOS # 0.2 K/mm3 (0.0-0.50); EOS % 2.2 % (0.0-3.0); LARGE UNSTAINED CELL # 0.1 K/mm3 (0.0-0.4); LYMPH # 0.5 K/mm3 (1.5-4.5); LYMPH % 5.5 % (24.0-44.0); MEAN CORPUSCULAR HEMOGLOBIN 31.9 pg (27.0-33.0); MEAN CORPUSCULAR VOLUME 99.8 fl (80.0-96.0); MONO # 0.5 K/mm3 (0.0-0.8); MONO % 5.3 % (0.0-5.0); NEUTROPHILS # 7.7 K/mm3 (1.8-7.7); NEUTROPHILS % 85.3 % (36.0-66.0); PLATELET COUNT, AUTOMATED 153 k/mm3 (150-450); RED CELL DISTRIBUTION WIDTH 13.1 % (11.5-14.5)
[2016-05-16 06:47] LABS: CALCIUM LEVEL 8.8 MG/DL (8.8-10.2)
[2016-05-16 06:52] LABS: INR 6.04
[2016-05-16 06:58] LABS: CREATININE FOR GFR 1.91 MG/DL (0.70-1.30); GLOMERULAR FILTRATION RATE 35.7 (>35)
[2016-05-16] MEDS ORDERED: PHYTONADIONE 5 MG TAB PO STA ×2 (07:01→12:18)
--- NOTE | 2016-05-16 08:43 | IPNPDOC ---
Assessment/Plan Date Seen The patient was seen on 05/16/16. Problems Problems: (1) Sepsis Status: Acute Problem Text: Patient is on day 3 of Zosyn and vancomycin. The wound grew out MSSA, so patient was switched to nafcillin. Patient has been seen previously in 2011 for the same, chronic, nonhealing inguinal wound. He had a history of mesh repair at this site. There is purulent drainage coming from the wound today. Patient also has positive UA. Previous outpatient f/u with Dr. Cage recommended foam dressing, however it appears that the areas developed an abscess. -Consult surgery for possible I&D versus need to remove any previous mesh material -Ultrasound for drainable collection -Changed to nafcillin for MSSA coverage; not meeting sepsis criteria today; if he worsens on monotherapy, we will broaden spectrum for bacteria not seen on culture -Blood cultures pending, no growth to date -Urine culture showed no growth, final 05/15/16 - Pt is on Day 2 of Nafcillin. 05/16/16 - Nafcillin Day 3. (2) Altered mental status Status: Acute Problem Text: Likely metabolic encephalopathy secondary to sepsis and left inguinal abscess. Improved mentation today. -Continue antibiotics (3) Dementia Status: Chronic Response to Treatment: Progressing Problem Text: Progressive. memantine held on admission. (4) Sacral decubitus ulcer, stage IV Status: Chronic Response to Treatment: Worse Problem Specific Plan: Monitor Clinically Problem Text: as per sepsis (5) BPH (benign prostatic hyperplasia) Status: Chronic Response to Treatment: Stable Problem Specific Plan: Monitor Clinically Problem Text: On home tamsulosin dosing 05/13 PVR 130 cc (6) Hypothyroid Status: Chronic Response to Treatment: Stable Problem Specific Plan: Monitor Clinically Problem Text: stable TSH of 2. Continue current thyroid supplement. (7) Atrial fibrillation Status: Chronic Response to Treatment: Stable Problem Specific Plan: Monitor Clinically Problem Text: On chronic Warfarin. Monitor INR daily. -INR 3.0; hold Coumadin 05/16/16 - Coumadin has been held. Last dose was 05/13/16. Today INR 6. Pt was given Vit K. Plans to recheck INR osmany this AM. (8) Hyperlipidemia Status: Chronic Problem Text: on HD rosuva 5 /fenofibrate 145 at home. (9) Constipation Status: Acute Problem Text: 05/16/16- Was manually disimpacted yesterday. PRN Milk of Mag. Plan / VTE VTE Prophylaxis Ordered?: Yes (Warfarin) Plan Diet: Supplement Advance Directives: DNR, Other Advance Directive (MOLST in chart: DNR/DNI) Subjective Review of Systems CC/HPI The patient is a 86-year-old male admitted with a reason for visit of Alterted Mental Status. Events since last encounter Pt denies any new issues. Constitutional: Denies: Chills, Fever Pulmonary: Denies: Dyspnea Cardiovascular: Denies: Chest Pain Gastrointestinal: Denies: Abdominal Pain, Nausea, Vomiting Objective Physical Examination General Exam: Positive: Alert (to self only), No Acute Distress Eye Exam: Positive: PERRLA ENT Exam: Positive: Atraumatic Neck Exam: Positive: Supple, Negative: JVD Chest Exam: Positive: Clear to auscultation, Normal air movement Heart Exam: Positive: Normal S1, Normal S2, Rate Normal Abdomen Exam: Positive: Normal bowel sounds, Soft, Negative: Tenderness Male Exam: Positive: Normal Genital Exam Extremity Exam: Negative: Clubbing, Cyanosis Skin Exam: Positive: Breakdown (stage 4 sacral decubitus ulcer. Sacral erythema and breakdown surrounding decubitus) Vital Signs/I&O Vital Signs Date Time Temp Pulse Resp B/P Pulse Ox O2 Delivery O2 Flow Rate FiO2 05/16/16 06:00 96.6 69 19 112/60 91 Room Air I&O- Last 24 Hours up to 6 AM 05/16/16 05:59 Intake Total 510 ml Output Total 525 ml Balance -15 ml Laboratory Data Labs 24H Laboratory Tests 2 05/16/16 06:07: Anion Gap 9, White Blood Count 9.0, Red Blood Count 4.12L, Hemoglobin 13.2L, Hematocrit 41.2L, Mean Corpuscular Volume 99.8H, Mean Corpuscular Hemoglobin 31.9, Mean Corpuscular Hemoglobin Concent 32.0, Red Cell Distribution Width 13.1 , Platelet Count 153, Neutrophils (%) (Auto) 85.3H, Lymphocytes (%) (Auto) 5.5L , Monocytes (%) (Auto) 5.3H, Eosinophils (%) (Auto) 2.2, Basophils (%) (Auto) 0.6, Neutrophils # (Auto) 7.7, Lymphocytes # (Auto) 0.5L, Monocytes # (Auto) 0.5 , Eosinophils # (Auto) 0.2, Basophils # (Auto) 0.1, Blood Urea Nitrogen 31H, Creatinine 1.91#H, Sodium Level 140, Potassium Level 4.0, Chloride Level 102, Carbon Dioxide Level 29, Calcium Level 8.8, Glomerular Filtration Rate 35.7, Large Unclassified Cells # 0.1, Large Unclassified Cells % 1.0, Prothromb Time International Ratio 6.04*H, Prothrombin Time 53.6H CBC/BMP Laboratory Tests 05/16/16 06:07 Calcium Level 8.8, Red Blood Count 4.12 L, Mean Corpuscular Volume 99.8 H, Mean Corpuscular Hemoglobin 31.9, Mean Corpuscular Hemoglobin Concent 32.0, Red Cell Distribution Width 13.1, Neutrophils (%) (Auto) 85.3 H, Lymphocytes (%) (Auto) 5.5 L, Monocytes (%) (Auto) 5.3 H, Eosinophils (%) (Auto) 2.2, Basophils (%) ( Auto) 0.6, Neutrophils # (Auto) 7.7, Lymphocytes # (Auto) 0.5 L, Monocytes # ( Auto) 0.5, Eosinophils # (Auto) 0.2, Basophils # (Auto) 0.1 Microbiology Microbiology 05/12/16 Blood Culture - Preliminary, Resulted No Growth after 72 hours. All specime... 05/12/16 Blood Culture - Preliminary, Resulted No Growth after 72 hours. All specime... 05/12/16 Urine Culture - Final, Complete 05/12/16 Gram Stain - Final, Complete 05/12/16 Wound Culture - Final, Complete Staphylococcus Aureus Jimbo Mendoza RPA-C May 16, 2016 08:43
[2016-05-16] MEDS: DOCUSATE SODIUM 100 MG CAP PO SCH (10:17)
[2016-05-16] MEDS: CYANOCOBALAMIN 500 MCG TAB PO SCH (10:18)
[2016-05-16] MEDS: ROSUVASTATIN 10 MG TAB (CRESTOR) PO SCH (10:18)
[2016-05-16] MEDS: ASPIRIN 81 MG ENTERIC TAB PO SCH (10:18)
[2016-05-16 12:11] LABS: INR 6.25
[2016-05-16 12:49] LABS: ALBUMIN 1.7 GM/DL (3.2-5.2); ALBUMIN/GLOBULIN RATIO 0.39 (1.00-1.93); BILIRUBIN,DIRECT 1.9 MG/DL (0.0-0.2); BILIRUBIN,TOTAL 3.6 MG/DL (0.2-1.0); TOTAL PROTEIN 6.1 GM/DL (6.4-8.2)
[2016-05-16 14:00] VITALS: BP 121/80
[2016-05-16] MEDS ORDERED: MORPHINE 10MG/0.5ML ORAL CONCENTRATE SOLUTION U/D SL PRN (16:45)
[2016-05-16] MEDS ORDERED: FLEET ENEMA PR PRN (16:45)
[2016-05-16] MEDS ORDERED: MORPHINE 2 MG/ML 1ML SYRINGE IV PRN (16:45)
[2016-05-16] MEDS ORDERED: ATROPINE SULFATE 1% OP SOLN 2 ML BTL SL PRN (16:45)
[2016-05-16] MEDS ORDERED: SCOPOLAMINE 1.5 MG TRANSDERMAL TD PRN (16:45)
[2016-05-16 16:53] LABS: INR 4.67
[2016-05-17] MEDS: LEVOTHYROXINE 0.05 MG TAB (50 MCG) PO SCH (06:17)
--- NOTE | 2016-05-17 07:58 | CR ---
DATE OF CONSULTATION: 05/14/2016 Reason for consultation is draining wound left groin. HISTORY OF THE PRESENT ILLNESS: The patient is an 86-year-old man who was admitted on 05/12/2016 for altered mental status. He was apparently brought to the emergency department on the afternoon of 05/12/2016 with complaints of some confusion and decreased level of consciousness. He has a long history of dementia. In the emergency department, he underwent evaluation with some blood work and a chest x-ray. He was admitted by the hospitalist service for management. He has a chronic wound in his left groin, which has been draining some purulent material, and I was asked to see the patient today regarding this. He has had apparently a left inguinal hernia repair some years ago in which mesh was utilized. According to medical records, the mesh became infected. In 2011, he underwent an exploration by Dr. Shaffer with removal of a portion of the mesh and debridement of a fistula that had arisen associated with infection of the mesh. He has, according to his admitting history and physical, been seen at wound care centers over the years since. Medications listed on admission include Aricept, aspirin, Coumadin, Crestor, fenofibrate, levothyroxine, vitamin B12, tamsulosin, vitamin D3, and risperidone. ALLERGIES: There are NO KNOWN DRUG ALLERGIES. Medical history is significant for atrial fibrillation, coronary artery disease, carotid stenosis, gout, hyperlipidemia, benign prostatic hyperplasia, hypothyroidism, anemia secondary to iron deficiency, dementia, chronic kidney disease stage III. Surgical history is significant for coronary surgery, pacemaker insertion, left inguinal hernia repair, aortobifemoral stenting, cataract surgery. Review of systems is not obtainable really from the patient. His history and physical, which was done by the resident in communication with the patient's spouse, reports that the patient has lost some weight over the last 6 months. He has some baseline confusion and has been bed-bound for some years. They report a chronic draining ulcer in the left inguinal area. Physical examination reveals a frail-appearing elderly white male lying quietly in the hospital bed. He is responsive and speaks appropriately. I did not test his mental status, though he was able to converse appropriately. When I asked about his groin wound, he said he was not aware of anything. Skin is warm and dry. The abdomen is soft and nontender. Examination in the left lower quadrant roughly over the area of the inguinal canal shows two small sinus tracts into which some absorptive wicking material has been placed. I did not probe these to try to ascertain the depth. There is a small amount of pus, which can be expressed with pressure lateral to the sinus tracts through the lateral most of the two tracts. Down in the inguinal crease, there is another small sinus tract into which some absorptive wicking material has been placed. There is no significant redness around these wounds. They do not appear significantly tender on palpation. There is no suggestion of a large area of undrained purulence. There is no palpable subcutaneous air. His laboratory studies today showed a white count of 8.8 with a differential showing 84% neutrophils, 7% lymphocytes and 5% monocytes. Hemoglobin is 11 with a hematocrit of 34 and the platelet count is 104,000. Chemistry profile showed a sodium of 143, potassium 3.7, chloride 108. BUN is 22 with creatinine of 0.76 and a glucose was 86. Coagulation panel revealed a prothrombin time of 31.5 with an INR of 3.04. A culture of some of the drainage obtained on 05/12/2016 grew Staphylococcus aureus, which was sensitive to everything tested except penicillin G. 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 RECOMMENDATIONS: At this point, I do not believe there is anything aggressive that would be appropriate to do for this chronic infection. 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 Without surgery to remove the mesh and leave the wound open to heal this is unlikely ever to be completely cleared up, but the patient does not appear to have enough foreseeable benefit from this sort of surgery to make it worthwhile. I would recommend continued local wound care. As long as the wound continues to drain, he is unlikely to have serious problems from this area. In the event of an acute infection, antibiotic therapy may be warranted. ANIKA
[2016-05-17] MEDS: ASPIRIN 81 MG ENTERIC TAB PO SCH (08:09)
--- NOTE | 2016-05-17 08:18 | IPNPDOC ---
Assessment/Plan Date Seen The patient was seen on 05/17/16. Problems Problems: (1) Sepsis Status: Acute Problem Text: Patient is on day 3 of Zosyn and vancomycin. The wound grew out MSSA, so patient was switched to nafcillin. Patient has been seen previously in 2011 for the same, chronic, nonhealing inguinal wound. He had a history of mesh repair at this site. There is purulent drainage coming from the wound today. Patient also has positive UA. Previous outpatient f/u with Dr. Cage recommended foam dressing, however it appears that the areas developed an abscess. -Consult surgery for possible I&D versus need to remove any previous mesh material -Ultrasound for drainable collection -Changed to nafcillin for MSSA coverage; not meeting sepsis criteria today; if he worsens on monotherapy, we will broaden spectrum for bacteria not seen on culture -Blood cultures pending, no growth to date -Urine culture showed no growth, final 05/15/16 - Pt is on Day 2 of Nafcillin. 05/16/16 - Nafcillin Day 3. 05/17/16 - Pt was made BLUEPRINT DUPLICATOR 05/16/16. (2) Altered mental status Status: Acute Problem Text: Likely metabolic encephalopathy secondary to sepsis and left inguinal abscess. Improved mentation today. -Continue antibiotics 05/17/16 - Pt was made BLUEPRINT DUPLICATOR 05/16/16. (3) Dementia Status: Chronic Response to Treatment: Progressing Problem Text: Progressive. memantine held on admission. (4) Sacral decubitus ulcer, stage IV Status: Chronic Response to Treatment: Worse Problem Specific Plan: Monitor Clinically Problem Text: as per sepsis (5) BPH (benign prostatic hyperplasia) Status: Chronic Response to Treatment: Stable Problem Specific Plan: Monitor Clinically Problem Text: On home tamsulosin dosing 05/13 PVR 130 cc (6) Hypothyroid Status: Chronic Response to Treatment: Stable Problem Specific Plan: Monitor Clinically Problem Text: stable TSH of 2. Continue current thyroid supplement. (7) Atrial fibrillation Status: Chronic Response to Treatment: Stable Problem Specific Plan: Monitor Clinically Problem Text: On chronic Warfarin. Monitor INR daily. -INR 3.0; hold Coumadin 05/16/16 - Coumadin has been held. Last dose was 05/13/16. Today INR 6. Pt was given Vit K. Plans to recheck INR osmany this AM. 05/17/16 - Pt was made BLUEPRINT DUPLICATOR 05/16/16. (8) Hyperlipidemia Status: Chronic Problem Text: on HD rosuva 5 /fenofibrate 145 at home. (9) Constipation Status: Acute Problem Text: 05/16/16- Was manually disimpacted yesterday. PRN Milk of Mag. Plan / VTE VTE Prophylaxis Ordered?: Yes (Warfarin) Plan Diet: Supplement Advance Directives: DNR, Other Advance Directive (MOLST in chart: DNR/DNI) Plan Text Attending attestation: I saw and evaluated the patient, and agree with plan of care as discussed and recommended above. Patient's family is unsure that they have space to accommodate a hospital bed, but would like the patient to go home with home hospice. We will await hospice evaluation to see what equipment, if any, family needs to manage fpc. Started 3 days of Diflucan for oral thrush. Medication ordered IV, as not sure patient would do well with swish and swallow. Cj Horne MD Subjective Review of Systems CC/HPI The patient is a 86-year-old male admitted with a reason for visit of Alterted Mental Status. Events since last encounter Pt sleeping but wakes to voice. denies pt is having any Pain or SOB, but has had some mild anxiety. Pulmonary: Denies: Dyspnea Cardiovascular: Denies: Chest Pain Gastrointestinal: Denies: Abdominal Pain Objective Physical Examination General Exam: Positive: Alert (to self only), No Acute Distress Eye Exam: Positive: PERRLA ENT Exam: Positive: Atraumatic Neck Exam: Positive: Supple, Negative: JVD Chest Exam: Positive: Clear to auscultation, Normal air movement Heart Exam: Positive: Normal S1, Normal S2, Rate Normal Abdomen Exam: Positive: Normal bowel sounds, Soft, Negative: Tenderness Male Exam: Positive: Normal Genital Exam Extremity Exam: Negative: Clubbing, Cyanosis Skin Exam: Positive: Breakdown (stage 4 sacral decubitus ulcer. Sacral erythema and breakdown surrounding decubitus) Vital Signs/I&O Vital Signs Date Time Temp Pulse Resp B/P Pulse Ox O2 Delivery O2 Flow Rate FiO2 05/16/16 21:00 Room Air 05/16/16 14:00 97.1 70 18 121/80 90 I&O- Last 24 Hours up to 6 AM 05/17/16 06:00 Intake Total 760 ml Output Total 100 ml Balance 660 ml Laboratory Data Labs 24H Laboratory Tests 2 05/16/16 11:30: Prothromb Time International Ratio 6.25*H, Prothrombin Time 55.1H 05/16/16 16:29: Prothromb Time International Ratio 4.67, Prothrombin Time 43.9H Microbiology Microbiology 05/12/16 Blood Culture - Preliminary, Resulted No Growth after 72 hours. All specime... 05/12/16 Blood Culture - Preliminary, Resulted No Growth after 72 hours. All specime... 05/12/16 Urine Culture - Final, Complete 05/12/16 Gram Stain - Final, Complete 05/12/16 Wound Culture - Final, Complete Staphylococcus Aureus Jimbo Mendoza May 17, 2016 08:18 CJ HORNE MD May 17, 2016 11:43
[2016-05-17] MEDS ORDERED: DOCUSATE SODIUM 100 MG CAP PO PRN (09:00)
[2016-05-17] MEDS: FLUCONAZOLE 100 MG in APPROPRIATE DILUENT 1 EA IV SCH (13:45)
[2016-05-18] MEDS: LEVOTHYROXINE 0.05 MG TAB (50 MCG) PO SCH (05:44)
[2016-05-18 06:05] LABS: INR 1.46
[2016-05-18] MEDS: FLUCONAZOLE 100 MG in APPROPRIATE DILUENT 1 EA IV SCH (13:03)
--- NOTE | 2016-05-18 14:30 | IPNPDOC ---
Assessment/Plan Date Seen The patient was seen on 05/18/16. Problems Problems: (1) Sepsis Status: Resolved Problem Text: Wound grew out MSSA, and patient was previously being covered with nafcillin. However, family opted to pursue with comfort only measures as of 05/17/2015. Surgical consult recommended no intervention, including antibiotics unless the patient spiked a fever. -Awaiting hospice (2) Altered mental status Status: Chronic Problem Text: Patient is back to baseline dementia. (3) Dementia Status: Chronic Response to Treatment: Progressing Problem Text: Progressive. memantine held on admission. (4) Sacral decubitus ulcer, stage IV Status: Chronic Response to Treatment: Worse Problem Specific Plan: Monitor Clinically Problem Text: Wound care (5) BPH (benign prostatic hyperplasia) Status: Chronic Response to Treatment: Stable Problem Specific Plan: Monitor Clinically Problem Text: On home tamsulosin dosing (6) Hypothyroid Status: Chronic Response to Treatment: Stable Problem Specific Plan: Monitor Clinically Problem Text: stable TSH of 2. Continue current thyroid supplement. (7) Atrial fibrillation Status: Chronic Response to Treatment: Stable Problem Specific Plan: Monitor Clinically Problem Text: Previously on Coumadin for chronic A. fib. Coumadin now held for comfort care measures. (8) Hyperlipidemia Status: Chronic Problem Text: Discontinued home medications for comfort care measures (9) Constipation Status: Acute Problem Text: PRN Milk of Mag. Plan / VTE VTE Prophylaxis Ordered?: Yes (Warfarin) Plan Diet: Supplement Advance Directives: DNR, Other Advance Directive (MOLST in chart: DNR/DNI) Disposition Awaiting hospice consult for discharge with home hospice versus discharge to hospice house. Subjective Review of Systems CC/HPI The patient is a 86-year-old male admitted with a reason for visit of Alterted Mental Status. Events since last encounter Patient is more alert and awake today. Has no complaints, although he is quite confused. Unable to get review of systems. Family is still wishing to pursue comfort measures and hospice. They're waiting to speak with a hospice premium service representative. General: Reports: ROS Unobtainable Objective Physical Examination General Exam: Positive: Alert (to self only), No Acute Distress Eye Exam: Positive: PERRLA ENT Exam: Positive: Atraumatic Neck Exam: Positive: Supple, Negative: JVD Chest Exam: Positive: Clear to auscultation, Normal air movement Heart Exam: Positive: Normal S1, Normal S2, Rate Normal Abdomen Exam: Positive: Normal bowel sounds, Other (chronic left inguinal wound ), Soft, Negative: Tenderness Male Exam: Positive: Normal Genital Exam Extremity Exam: Negative: Clubbing, Cyanosis Skin Exam: Positive: Breakdown (stage 4 sacral decubitus ulcer. Sacral erythema and breakdown surrounding decubitus) Vital Signs/I&O Vital Signs Date Time Temp Pulse Resp B/P Pulse Ox O2 Delivery O2 Flow Rate FiO2 05/18/16 09:00 Room Air 05/16/16 14:00 97.1 70 18 121/80 90 I&O- Last 24 Hours up to 6 AM 05/18/16 06:00 Intake Total 240 ml Output Total 0 ml Balance 240 ml Laboratory Data Labs 24H Laboratory Tests 2 05/18/16 05:27: Prothromb Time International Ratio 1.46, Prothrombin Time 17.8H Microbiology Microbiology 05/12/16 Blood Culture - Final, Complete NO GROWTH AFTER 5 DAYS 05/12/16 Blood Culture - Final, Complete NO GROWTH AFTER 5 DAYS 05/12/16 Urine Culture - Final, Complete 05/12/16 Gram Stain - Final, Complete 05/12/16 Wound Culture - Final, Complete Staphylococcus Aureus BRIGIDO POON MD May 18, 2016 14:30
[2016-05-19] MEDS: LEVOTHYROXINE 0.05 MG TAB (50 MCG) PO SCH (06:00)
--- NOTE | 2016-05-19 08:25 | IPNPDOC ---
Assessment/Plan Date Seen The patient was seen on 05/19/16. Problems Problems: (1) Sepsis Status: Resolved Problem Text: Wound grew out MSSA, and patient was previously being covered with nafcillin. However, family opted to pursue with comfort only measures as of 05/17/2015. Surgical consult recommended no intervention, including antibiotics unless the patient spiked a fever. -Awaiting hospice 05/19/2015: continues to decline. appears comfortable. Re-attempt Hospice consult today. (2) Altered mental status Status: Chronic Problem Text: Patient is back to baseline dementia. (3) Dementia Status: Chronic Response to Treatment: Progressing Problem Text: Progressive. memantine held on admission. (4) Sacral decubitus ulcer, stage IV Status: Chronic Response to Treatment: Worse Problem Specific Plan: Monitor Clinically Problem Text: Wound care (5) BPH (benign prostatic hyperplasia) Status: Chronic Response to Treatment: Stable Problem Specific Plan: Monitor Clinically Problem Text: On home tamsulosin dosing (6) Hypothyroid Status: Chronic Response to Treatment: Stable Problem Specific Plan: Monitor Clinically Problem Text: stable TSH of 2. Continue current thyroid supplement. (7) Atrial fibrillation Status: Chronic Response to Treatment: Stable Problem Specific Plan: Monitor Clinically Problem Text: Previously on Coumadin for chronic A. fib. Coumadin now held for comfort care measures. (8) Hyperlipidemia Status: Chronic Problem Text: Discontinued home medications for comfort care measures (9) Constipation Status: Acute Problem Text: PRN Milk of Mag. Plan / VTE VTE Prophylaxis Ordered?: Yes (Warfarin) Plan Diet: Supplement Advance Directives: DNR, Other Advance Directive (MOLST in chart: DNR/DNI) Subjective Review of Systems CC/HPI The patient is a 86-year-old male admitted with a reason for visit of Alterted Mental Status. Events since last encounter Per nursing staff, waxing and waning in condition. Some chest rattle noted with apnea type breathing. too distraught for Hospice consult yesterday. General: Reports: ROS Unobtainable Objective Physical Examination General Exam: Positive: No Acute Distress, Other (no response to physical stimuli) Neck Exam: Positive: Supple, Negative: JVD Chest Exam: Positive: Clear to auscultation, Normal air movement Heart Exam: Positive: Normal S1, Normal S2 Abdomen Exam: Positive: Normal bowel sounds, Other (chronic left inguinal wound ), Soft, Negative: Tenderness Extremity Exam: Negative: Clubbing, Cyanosis Skin Exam: Positive: Breakdown (stage 4 sacral decubitus ulcer. Sacral erythema and breakdown surrounding decubitus) Vital Signs/I&O Vital Signs Date Time Temp Pulse Resp B/P Pulse Ox O2 Delivery O2 Flow Rate FiO2 05/18/16 09:00 Room Air 05/16/16 14:00 97.1 70 18 121/80 90 I&O- Last 24 Hours up to 6 AM 05/19/16 05:59 Intake Total 480 ml Output Total 150 ml Balance 330 ml Laboratory Data Microbiology Microbiology 05/12/16 Blood Culture - Final, Complete NO GROWTH AFTER 5 DAYS 05/12/16 Blood Culture - Final, Complete NO GROWTH AFTER 5 DAYS 05/12/16 Urine Culture - Final, Complete 05/12/16 Gram Stain - Final, Complete 05/12/16 Wound Culture - Final, Complete Staphylococcus Aureus Ayah Ingram GREENHOUSE WORKER May 19, 2016 08:25 Ayah Ingram GREENHOUSE WORKER May 19, 2016 08:25
[2016-05-19] MEDS: FLUCONAZOLE 100 MG in APPROPRIATE DILUENT 1 EA IV SCH (14:00)
[2016-05-20] MEDS: LEVOTHYROXINE 0.05 MG TAB (50 MCG) PO SCH ×2 (05:35→05:38)
--- NOTE | 2016-05-20 08:29 | IPNPDOC ---
Assessment/Plan Date Seen The patient was seen on 05/20/16. Problems Problems: (1) Sepsis Status: Resolved Problem Text: Wound grew out MSSA, and patient was previously being covered with nafcillin. However, family opted to pursue with comfort only measures as of 05/17/2015. Surgical consult recommended no intervention, including antibiotics unless the patient spiked a fever. -Awaiting hospice 05/19/2015: continues to decline. appears comfortable. Re-attempt Hospice consult today. (2) Altered mental status Status: Chronic Problem Text: Patient is back to baseline dementia. (3) Dementia Status: Chronic Response to Treatment: Progressing Problem Text: Progressive. memantine held on admission. (4) Sacral decubitus ulcer, stage IV Status: Chronic Response to Treatment: Worse Problem Specific Plan: Monitor Clinically Problem Text: Wound care (5) BPH (benign prostatic hyperplasia) Status: Chronic Response to Treatment: Stable Problem Specific Plan: Monitor Clinically Problem Text: On home tamsulosin dosing (6) Hypothyroid Status: Chronic Response to Treatment: Stable Problem Specific Plan: Monitor Clinically Problem Text: stable TSH of 2. Continue current thyroid supplement. (7) Atrial fibrillation Status: Chronic Response to Treatment: Stable Problem Specific Plan: Monitor Clinically Problem Text: Previously on Coumadin for chronic A. fib. Coumadin now held for comfort care measures. (8) Hyperlipidemia Status: Chronic Problem Text: Discontinued home medications for comfort care measures (9) Constipation Status: Acute Problem Text: PRN Milk of Mag. Plan / VTE VTE Prophylaxis Ordered?: Yes (Warfarin) Plan Diet: Supplement Advance Directives: DNR, Other Advance Directive (MOLST in chart: DNR/DNI) Subjective Review of Systems CC/HPI The patient is a 86-year-old male admitted with a reason for visit of Alterted Mental Status. Events since last encounter Hospice consult pending. comfortable per nursing staff. General: Reports: ROS Unobtainable Objective Physical Examination General Exam: Positive: No Acute Distress, Other (no response to physical stimuli) Neck Exam: Positive: Supple, Negative: JVD Chest Exam: Positive: Clear to auscultation, Normal air movement Heart Exam: Positive: Normal S1, Normal S2 Abdomen Exam: Positive: Normal bowel sounds, Other (chronic left inguinal wound ), Soft, Negative: Tenderness Extremity Exam: Negative: Clubbing, Cyanosis Skin Exam: Positive: Breakdown (stage 4 sacral decubitus ulcer. Sacral erythema and breakdown surrounding decubitus) Vital Signs/I&O Vital Signs Date Time Temp Pulse Resp B/P Pulse Ox O2 Delivery O2 Flow Rate FiO2 05/19/16 21:00 Room Air 05/16/16 14:00 97.1 70 18 121/80 90 I&O- Last 24 Hours up to 6 AM 05/20/16 06:00 Intake Total 720 ml Output Total 500 ml Balance 220 ml Laboratory Data Microbiology Microbiology 05/12/16 Blood Culture - Final, Complete NO GROWTH AFTER 5 DAYS 05/12/16 Blood Culture - Final, Complete NO GROWTH AFTER 5 DAYS 05/12/16 Urine Culture - Final, Complete 05/12/16 Gram Stain - Final, Complete 05/12/16 Wound Culture - Final, Complete Staphylococcus Aureus Ayah Ingram DIRECTOR OF OCCUPATIONAL THERAPY May 20, 2016 08:29
[2016-05-21] MEDS: LEVOTHYROXINE 0.05 MG TAB (50 MCG) PO SCH ×2 (05:18→05:19)
[2016-05-21] MEDS: LORazepam 1 MG TAB PO PRN ×2 (11:33→15:01)
--- NOTE | 2016-05-21 16:14 | IPNPDOC ---
Assessment/Plan Date Seen The patient was seen on 05/21/16. Problems Problems: (1) Sepsis Status: Resolved Problem Text: Wound grew out MSSA, and patient was previously being covered with nafcillin. However, family opted to pursue with comfort only measures as of 05/17/2015. Surgical consult recommended no intervention, including antibiotics unless the patient spiked a fever. -Awaiting hospice 05/19/2015: continues to decline. appears comfortable. Re-attempt Hospice consult today. (2) Comfort measures only status Status: Acute Problem Text: 05/21/2016 -- Family elects patient to be [id number] in the hospital, rather than home with hospice. There have been multiple family members visiting. Discussed with family that prn pain and anxiety medications are available. We will continue to support. (3) Altered mental status Status: Chronic Problem Text: Patient is back to baseline dementia. (4) Dementia Status: Chronic Response to Treatment: Progressing Problem Text: Progressive. memantine held on admission. (5) BPH (benign prostatic hyperplasia) Status: Chronic Response to Treatment: Stable Problem Specific Plan: Monitor Clinically Problem Text: On home tamsulosin dosing (6) Sacral decubitus ulcer, stage IV Status: Chronic Response to Treatment: Worse Problem Specific Plan: Monitor Clinically Problem Text: Wound care (7) Hypothyroid Status: Chronic Response to Treatment: Stable Problem Specific Plan: Monitor Clinically Problem Text: stable TSH of 2. Continue current thyroid supplement. (8) Atrial fibrillation Status: Chronic Response to Treatment: Stable Problem Specific Plan: Monitor Clinically Problem Text: Previously on Coumadin for chronic A. fib. Coumadin now held for comfort care measures. (9) Hyperlipidemia Status: Chronic Problem Text: Discontinued home medications for comfort care measures (10) Constipation Status: Acute Problem Text: PRN Milk of Mag. Plan / VTE VTE Prophylaxis Ordered?: Yes (Warfarin) Plan Diet: Supplement Advance Directives: DNR, Other Advance Directive (MOLST in chart: DNR/DNI) Subjective Review of Systems CC/HPI The patient is a 86-year-old male admitted with a reason for visit of Alterted Mental Status. Events since last encounter Patient was somewhat more aware when I visited today, but not answering questions. was present, as were multiple family members. They felt that he had been somewhat anxious, and prn anxiolytics were ordered. General: Reports: ROS Unobtainable Objective Physical Examination General Exam: Positive: No Acute Distress, Other (no response to physical stimuli) Neck Exam: Positive: Supple, Negative: JVD Chest Exam: Positive: Clear to auscultation, Normal air movement Heart Exam: Positive: Normal S1, Normal S2 Abdomen Exam: Positive: Normal bowel sounds, Other (chronic left inguinal wound ), Soft, Negative: Tenderness Extremity Exam: Negative: Clubbing, Cyanosis Skin Exam: Positive: Breakdown (stage 4 sacral decubitus ulcer. Sacral erythema and breakdown surrounding decubitus) Vital Signs/I&O Vital Signs Date Time Temp Pulse Resp B/P Pulse Ox O2 Delivery O2 Flow Rate FiO2 05/21/16 09:00 Room Air 05/16/16 14:00 97.1 70 18 121/80 90 I&O- Last 24 Hours up to 6 AM 05/21/16 06:00 Intake Total 960 ml Output Total 200 ml Balance 760 ml Laboratory Data Microbiology Microbiology 05/12/16 Blood Culture - Final, Complete NO GROWTH AFTER 5 DAYS 05/12/16 Blood Culture - Final, Complete NO GROWTH AFTER 5 DAYS 05/12/16 Urine Culture - Final, Complete 05/12/16 Gram Stain - Final, Complete 05/12/16 Wound Culture - Final, Complete Staphylococcus Aureus FELIPE ALMANZA DO May 21, 2016 16:14
[2016-05-22] MEDS: LEVOTHYROXINE 0.05 MG TAB (50 MCG) PO SCH (06:00)
--- NOTE | 2016-05-22 09:02 | IPNPDOC ---
Assessment/Plan Date Seen The patient was seen on 05/22/16. Problems Problems: (1) Sepsis Status: Resolved Problem Text: Wound grew out MSSA, and patient was previously being covered with nafcillin. However, family opted to pursue with comfort only measures as of 05/17/2015. Surgical consult recommended no intervention, including antibiotics unless the patient spiked a fever. -Awaiting hospice 05/19/2015: continues to decline. appears comfortable. Re-attempt Hospice consult today. (2) Comfort measures only status Status: Acute Problem Text: 05/21/2016 -- Family elects patient to be [id number] in the hospital, rather than home with hospice. There have been multiple family members visiting. Discussed with family that prn pain and anxiety medications are available. We will continue to support. (3) Altered mental status Status: Chronic Problem Text: Patient is back to baseline dementia. (4) Dementia Status: Chronic Response to Treatment: Progressing Problem Text: Progressive. memantine held on admission. (5) BPH (benign prostatic hyperplasia) Status: Chronic Response to Treatment: Stable Problem Specific Plan: Monitor Clinically Problem Text: On home tamsulosin dosing (6) Sacral decubitus ulcer, stage IV Status: Chronic Response to Treatment: Worse Problem Specific Plan: Monitor Clinically Problem Text: Wound care (7) Hypothyroid Status: Chronic Response to Treatment: Stable Problem Specific Plan: Monitor Clinically Problem Text: stable TSH of 2. Continue current thyroid supplement. (8) Atrial fibrillation Status: Chronic Response to Treatment: Stable Problem Specific Plan: Monitor Clinically Problem Text: Previously on Coumadin for chronic A. fib. Coumadin now held for comfort care measures. (9) Hyperlipidemia Status: Chronic Problem Text: Discontinued home medications for comfort care measures (10) Constipation Status: Acute Problem Text: PRN Milk of Mag. Plan / VTE VTE Prophylaxis Ordered?: Yes (Warfarin) Plan Diet: Supplement Advance Directives: DNR, Other Advance Directive (MOLST in chart: DNR/DNI) Subjective Review of Systems CC/HPI The patient is a 86-year-old male admitted with a reason for visit of Alterted Mental Status. Events since last encounter Patient sleeping. Family member at bedside. General: Reports: ROS Unobtainable Objective Physical Examination General Exam: Positive: No Acute Distress, Other (no response to physical stimuli) Neck Exam: Positive: Supple, Negative: JVD Chest Exam: Positive: Clear to auscultation, Normal air movement Heart Exam: Positive: Normal S1, Normal S2 Abdomen Exam: Positive: Normal bowel sounds, Other (chronic left inguinal wound ), Soft, Negative: Tenderness Extremity Exam: Negative: Clubbing, Cyanosis Skin Exam: Positive: Breakdown (stage 4 sacral decubitus ulcer. Sacral erythema and breakdown surrounding decubitus) Vital Signs/I&O Vital Signs Date Time Temp Pulse Resp B/P Pulse Ox O2 Delivery O2 Flow Rate FiO2 05/21/16 20:30 Room Air 05/16/16 14:00 97.1 70 18 121/80 90 I&O- Last 24 Hours up to 6 AM 05/22/16 06:00 Intake Total 480 ml Output Total 0 ml Balance 480 ml Laboratory Data Microbiology Microbiology 05/12/16 Blood Culture - Final, Complete NO GROWTH AFTER 5 DAYS 05/12/16 Blood Culture - Final, Complete NO GROWTH AFTER 5 DAYS 05/12/16 Urine Culture - Final, Complete 05/12/16 Gram Stain - Final, Complete 05/12/16 Wound Culture - Final, Complete Staphylococcus Aureus Jimbo Mendoza RPA-C May 22, 2016 09:02
[2016-05-23] MEDS: LEVOTHYROXINE 0.05 MG TAB (50 MCG) PO SCH (06:59)
--- NOTE | 2016-05-23 09:04 | IPNPDOC ---
Assessment/Plan Date Seen The patient was seen on 05/23/16. Problems Problems: (1) Sepsis Status: Resolved Problem Text: Wound grew out MSSA, and patient was previously being covered with nafcillin. However, family opted to pursue with comfort only measures as of 05/17/2015. Surgical consult recommended no intervention, including antibiotics unless the patient spiked a fever. -Awaiting hospice 05/19/2015: continues to decline. appears comfortable. Re-attempt Hospice consult today. (2) Comfort measures only status Status: Acute Problem Text: 05/21/2016 -- Family elects patient to be [id number] in the hospital, rather than home with hospice. There have been multiple family members visiting. Discussed with family that prn pain and anxiety medications are available. We will continue to support. (3) Altered mental status Status: Chronic Problem Text: Patient is back to baseline dementia. (4) Dementia Status: Chronic Response to Treatment: Progressing Problem Text: Progressive. memantine held on admission. (5) BPH (benign prostatic hyperplasia) Status: Chronic Response to Treatment: Stable Problem Specific Plan: Monitor Clinically Problem Text: On home tamsulosin dosing (6) Sacral decubitus ulcer, stage IV Status: Chronic Response to Treatment: Worse Problem Specific Plan: Monitor Clinically Problem Text: Wound care (7) Hypothyroid Status: Chronic Response to Treatment: Stable Problem Specific Plan: Monitor Clinically Problem Text: stable TSH of 2. Continue current thyroid supplement. (8) Atrial fibrillation Status: Chronic Response to Treatment: Stable Problem Specific Plan: Monitor Clinically Problem Text: Previously on Coumadin for chronic A. fib. Coumadin now held for comfort care measures. (9) Hyperlipidemia Status: Chronic Problem Text: Discontinued home medications for comfort care measures (10) Constipation Status: Acute Problem Text: PRN Milk of Mag. Plan / VTE VTE Prophylaxis Ordered?: Yes (Warfarin) Plan Diet: Supplement Advance Directives: DNR, Other Advance Directive (MOLST in chart: DNR/DNI) Subjective Review of Systems CC/HPI The patient is a 86-year-old male admitted with a reason for visit of Alterted Mental Status. Events since last encounter Pt sleeping. at bedside. General: Reports: ROS Unobtainable Objective Physical Examination General Exam: Positive: No Acute Distress, Other (no response to physical stimuli) Neck Exam: Positive: Supple, Negative: JVD Chest Exam: Positive: Wheezing Heart Exam: Positive: Normal S1, Normal S2 Abdomen Exam: Positive: Normal bowel sounds, Other (chronic left inguinal wound ), Soft, Negative: Tenderness Extremity Exam: Negative: Clubbing, Cyanosis Skin Exam: Positive: Breakdown (stage 4 sacral decubitus ulcer. Sacral erythema and breakdown surrounding decubitus) Vital Signs/I&O Vital Signs Date Time Temp Pulse Resp B/P Pulse Ox O2 Delivery O2 Flow Rate FiO2 05/22/16 09:00 Room Air I&O- Last 24 Hours up to 6 AM 05/23/16 06:00 Intake Total 580 ml Output Total 0 ml Balance 580 ml Jimbo Mendoza RPA-C May 23, 2016 09:04
[2016-05-24] MEDS: LEVOTHYROXINE 0.05 MG TAB (50 MCG) PO SCH (06:24)
--- NOTE | 2016-05-24 16:20 | DSES ---
DATE OF ADMISSION: 05/12/2016 DATE OF DISCHARGE: 05/24/2016 PRIMARY CARE PHYSICIAN: Dr. Yousif ATTENDING TODAY: Brenda Burrows MD HISTORY: This is an 86-year-old man who has a history of cardiomyopathy, complete heart block, coronary artery disease, atrial fibrillation, who presented in the hospital with progressively worsening weakness and worsening mental status. He had been home with his , who has been taking care of him for primarily independently for at least the last five years. The patient has suffered for dementia for as many as 10 years. In the last several months, this had been progressively worsening. He was admitted to the hospital for potentially septic encephalopathy superimposed on chronic dementia. He had leukocytosis with a white blood cell count of 14,000, elevated lactic acid 2.4. He did receive 1 liter of normal saline bolus in the emergency room, started on IV vancomycin and Zosyn. 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 Culture was obtained of this on presentation . He had some malnutrition with a hypoalbuminemia of 2.6, dysphagia as reported by his . During his hospitalization, he has remained medically stable. His wound only grew out Methicillin-Susceptible Staphylococcus aureus (MSSA). His antibiotics were changed to IV nafcillin. Dr. Abdi was consulted and found that there would not be substantial benefit in the patient undergoing surgery. His wounds and fistulas were draining well at that time. On May 18, the patient's family held a meeting and opted for comfort measure care. They have met with the [facility], as well as with providers and feel as though they would like the patient to remain in the hospital as they are unable to care for him at home. They have declined a hospice consult. DISCHARGE DIAGNOSES: 1. Sepsis secondary to a left inguinal wound. 2. Altered mental status. 3. Dementia. 4. Stage IV sacral decubitus ulcer. 5. Hypothyroidism. 6. Atrial fibrillation. 7. Chronic constipation. 8. Comfort measures only. DISCHARGE MEDICATIONS AND PLAN: Will be summarized at time of discharge from the hospital.
[2016-05-25] MEDS: LEVOTHYROXINE 0.05 MG TAB (50 MCG) PO SCH (05:27)
[2016-05-25] MEDS: LORazepam 1 MG TAB PO PRN (09:33)
[2016-05-25] MEDS ORDERED: ATRO1OPD SL (10:35)
[2016-05-25] MEDS ORDERED: BISA5TAB7 PO (10:35)
[2016-05-25] MEDS ORDERED: MAPA325T2 PO (10:35)
[2016-05-25] MEDS ORDERED: ATIV1TAB7 PO (10:35)
[2016-05-25] MEDS ORDERED: COLA100C PO (10:35)
[2016-05-25] MEDS ORDERED: MORP1SOL SL (10:35)
[2016-05-25] MEDS ORDERED: LEVO50TA5 PO (10:35)
[2016-05-25] MEDS ORDERED: MILKSUS PO (10:35)
== END 2016-05-25 12:10 | disposition hospice, inpatient (51) | DRG 919 ==
LOC: M ED 12:51 → M ED INP 18:32 → M MSPAV 20:36
PROVIDERS: ADMIT Internal Medicine; ATTEND Family Medicine
DX: T85.79XA Infection and inflammatory reaction due to other internal prosthetic devices, implants and grafts, initial encounter (principal); L89.154 Pressure ulcer of sacral region, stage 4; G93.41 Metabolic encephalopathy; A41.9 Sepsis, unspecified organism; E87.2 Acidosis; E46 Unspecified protein-calorie malnutrition; I50.32 Chronic diastolic (congestive) heart failure; I13.0 Hypertensive heart and chronic kidney disease with heart failure and stage 1 through stage 4 chronic kidney disease, or unspecified chronic kidney disease; I44.2 Atrioventricular block, complete; I42.9 Cardiomyopathy, unspecified; N39.0 Urinary tract infection, site not specified; Z51.5 Encounter for palliative care; Z66 Do not resuscitate; D69.6 Thrombocytopenia, unspecified; F03.90 Unspecified dementia, unspecified severity, without behavioral disturbance, psychotic disturbance, mood disturbance, and anxiety; I25.10 Atherosclerotic heart disease of native coronary artery without angina pectoris; D53.9 Nutritional anemia, unspecified; K59.00 Constipation, unspecified; I48.2 Chronic atrial fibrillation; R13.10 Dysphagia, unspecified; B95.61 Methicillin susceptible Staphylococcus aureus infection as the cause of diseases classified elsewhere; I73.9 Peripheral vascular disease, unspecified; N18.3 Chronic kidney disease, stage 3 (moderate); E78.5 Hyperlipidemia, unspecified; M19.90 Unspecified osteoarthritis, unspecified site; N40.0 Benign prostatic hyperplasia without lower urinary tract symptoms; M10.9 Gout, unspecified; E03.9 Hypothyroidism, unspecified; Y83.1 Surgical operation with implant of artificial internal device as the cause of abnormal reaction of the patient, or of later complication, without mention of misadventure at the time of the procedure; E55.9 Vitamin D deficiency, unspecified; I08.0 Rheumatic disorders of both mitral and aortic valves; Z79.82 Long term (current) use of aspirin; Z95.0 Presence of cardiac pacemaker; Z79.899 Other long term (current) drug therapy; Z79.01 Long term (current) use of anticoagulants; Z95.1 Presence of aortocoronary bypass graft